=== PATIENT | male | born 1935 | race Caucasian/White ===

== ENCOUNTER 2017-03-11 19:22 | Emergency (ER) | payer OTHER ==
--- NOTE | 2017-03-11 22:18 | ED NURSING NOTES ---
Clinical Report - Nurses [facility] [address] [place] [address] 03/11/2017 19:30 Patient: FARIDA WREN TRIAGE Triage time 1920 PM. Acuity: LEVEL 3. Alert. No acute distress. SEPSIS SCREEN: Sepsis Screen. Negative (no infection suspected/documented). KEATON COMA SCORE: [place] Coma Scale: 15- eyes open spontaneously (4); best verbal response- oriented x 4 (5); best motor response- obeys commands (6). --19:46 Ilene Palma R.N. 19:31 03/11/17. BP: 215/90. HR: 66. RR: 15. O2 saturation: 96%. Temp: 98.1 F (oral). Pain level now: 5/10. --19:46 Ilene Palma R.N. Chief Complaint: (H/A and high BP). late entry - 19:39 PM. --22:38 Ilene Palma R.N. Weight: 112.2 kg stated. Height/Length: 69 inches Per Patient. BMI: 36.6. --19:41 Ilene Palma R.N. Medications Tylenol with Codeine #3 Oral, as needed. --19:33 Ilene Palma R.N. ASA Oral 81 mg. --19:33 Ilene Palma R.N. Simvastatin Oral. --19:33 Ilene Palma R.N. Furosemide Oral. --19:33 Ilene Palma R.N. Levothyroxine Sodium Oral. --19:33 Ilene Palma R.N. Medication/allergy information source: the patient. --19:46 Ilene Palma R.N. Allergies No Known Drug Allergy. --19:32 Ilene Palma R.N. History Arrived by private vehicle. Historian: patient. Accompanied by family. Primary physician (Dr. Apurva Whipple ()). ( Pt states that since Thursday night has been experiencing H/A which resolved in the morning but started up again on Thursday night, Thursday night and today has been going on for the whole day. Pt does state has been unable to sleep well, approximately 3 hrs a night since Thursday night. Pt states not feeling dizzy or SOB, or double vision, no trouble speaking or walking. Pt states never having H/A in the past, family was concerned due to high BP 209/118. FAST exam negative). This started yesterday. No fever, weakness, cough, difficulty breathing or skin rash. Denies muscle aches. Treatment BINDER SORTER: (tylenol # 3). PAST MEDICAL HX: Immunizations: up-to-date. SOCIAL HX: Former smoker, end date 1969. No alcohol use or drug use. No infectious disease exposure. ABUSE ASSESSMENT: No report of abuse. SELF HARM ASSESSMENT: A self harm assessment was performed. The patient answered "no" to the question "Do you have thoughts of harming or killing yourself?" and "Have you recently had thoughts about harming or killing others?". FALL RISK ASSESSMENT: Fall risk assessment completed. No fall risk identified. NUTRITIONAL RISK ASSESSMENT: The nutritional risk assessment revealed no deficiencies. FUNCTIONAL ASSESSMENT: Functional assessment: no impairments noted. LEARNING NEEDS ASSESSMENT: The learning needs assessment revealed no barriers. SKIN INTEGRITY ASSESSMENT: Skin integrity risk assessment completed. No skin integrity risk identified. --19:46 Ilene Palma R.N. PROBLEMS: Degenerative Joint Disease. Arthritis. Hypothyroidism. Back Pain. --19:37 Ilene Palma R.N. ADDITIONAL SURGERIES: Knee replacement. --19:37 Ilene Palma R.N. Cataract Surgery. --19:46 Ilene Palma R.N. Interventions ID band on patient. --19:46 Ilene Palma R.N. PHYSICAL ASSESSMENT To room via wheelchair. ( Pt states feeling "heaviness across his eye and also around his nose" does admit to having sinus infection, denies cough, fevers, chills). GENERAL / NEURO / PSYCH: Alert. Oriented X 4. Appears in no acute distress. HEENT: No facial asymmetry noted. Mucous membranes are pink. RESPIRATORY: Respirations not labored. Chest nontender. Breath sounds within normal limits. CVS: Capillary refill less than 2 seconds. Pulses within normal limits. GI / : Abdomen soft and nontender and normal bowel sounds. SKIN: Skin is warm and dry. Poor skin turgor. --19:49 Ilene Palma R.N. NURSING PROGRESS NOTES The initial plan of care for this patient has been created This plan of care was discussed with the patient. Pulse oximeter and NIBP monitor placed on patient. Patient gowned. Warming measures: blanket applied. Reassurance given. The patient is calm. ( Normal speech, no deficits noted). Two patient identifiers checked. Call light placed in reach. Side rails up x 1. Patient ready for evaluation. --19:51 Ilene Palma R.N. 19:34 03/11/17. BP: 170/92 (regular adult cuff) taken on the right arm, via an automated monitor, while lying. HR: 67. RR: 15. O2 saturation: 98%. Pain level now: 510. --19:51 Ilene Palma R.N. 20:03 03/11/17. BP: 169/80 (regular adult cuff) taken on the right arm, via an automated monitor, while lying. HR: 66. RR: 14. O2 saturation: 96%. Pain level now: 510. --20:03 Ilene Palma R.N. 19:50 03/11/2017 Site #1 started via IV in the left forearm with an 20g angiocath, with aseptic technique and good blood return; one attempt. Blood drawn: rainbow set and cultures. Labeled in the presence of the patient and sent to the lab. Saline lock flushed with 10 mL saline. --20:39 Trang Forman R.N. 21:13 03/11/2017 Dilaudid (HYDROmorphone HCl PF) IVP 1 mg given over 30 second(s) via site #1. Allergies verified, confirmed 5 rights and sedative warning given to the patient and patient's family. IV patency established. IV site checked: no pain, redness, or swelling. IV flushed thoroughly pre- and post-medication administration. IVP given by RN. --21:18 Ilene Palma R.N. 21:18 03/11/2017 Toradol IVP 30 mg given over 30 second(s) via site #1. Allergies verified and confirmed 5 rights. IV patency established. IV site checked: no pain, redness, or swelling. IV flushed thoroughly pre- and post-medication administration. IVP given by RN. --21:18 Ilene Palma R.N. 21:19 03/11/2017 Lopressor (Metoprolol Tartrate) IVP 5 mg given over 10 minute(s) via site #1. Allergies verified and confirmed 5 rights. IV patency established. IV site checked: no pain, redness, or swelling. IV flushed thoroughly pre- and post-medication administration. IVP given by RN. --21:19 Ilene Palma R.N. late entry - 20:00 PM. Pulse oximeter and NIBP monitor placed on patient. Reassurance given. Overall patient status is the same- he states feels the same. GENERAL / NEURO / PSYCH: The patient reports headache. Call light placed in reach. --21:20 Ilene Palma R.N. 20:00 03/11/17. BP: 173/82. HR: 64. RR: 15. O2 saturation: 98% on room air. Pain level now: 06/18. --21:20 Ilene Palma R.N. Pulse oximeter and NIBP monitor placed on patient. Reassurance given. Overall patient status is improved- he states feels better. ( Meds given with good response, will monitor). GENERAL / NEURO / PSYCH: The patient reports headache. --21:21 Ilene Palma R.N. 21:20 03/11/17. BP: 180/91. HR: 63. RR: 15. O2 saturation: 98%. Pain level now: 04/18. --21:21 Ilene Palma R.N. Pulse oximeter and NIBP monitor placed on patient. Reassurance given. --21:35 Ilene Palma R.N. 21:34 03/11/17. BP: 178/85. HR: 58. RR: 14. O2 saturation: 96% on room air. Pain level now: 04/18. --21:35 Ilene Palma R.N. 21:36 03/11/2017 Dilaudid IVP Response: no adverse reaction pain is improving. Symptoms have improved the patient feels the same. --22:36 Ilene Palma R.N. 22:03/11/2017 Dilaudid (HYDROmorphone HCl PF) IVP 1 mg given over 1 minute(s) via site #1. Allergies verified, confirmed 5 rights and sedative warning given to the patient and patient's family. IV patency established. IV site checked: no pain, redness, or swelling. IV flushed thoroughly pre- and post-medication administration. IVP given by RN. --22:02 Ilene Palma R.N. Reassurance given. --22:06 Ilene Palma R.N. 22:03/11/17. BP: 185/86. HR: 54. RR: 14. O2 saturation: 98%. Pain level now: 02/16. --22:06 Ilene Palma R.N. 22:03/11/17. BP: 179/92 (regular adult cuff) taken on the right arm, via an automated monitor, while sitting. HR: 54. RR: 12. O2 saturation: 95%. Pain level now: 02/16. --22:07 Ilene Palma R.N. 22:12 03/11/17. BP: 159/87 (regular adult cuff) taken on the left arm, via an automated monitor. HR: 54. RR: 14. O2 saturation: 96% on room air. Pain level now: 12/19. --22:12 Ilene Palma R.N. 22:03/11/2017 Lopressor (Metoprolol Tartrate) IVP 15 mg given over 15 minute(s) via site #1. Allergies verified and confirmed 5 rights. IV patency established. IV site checked: no pain, redness, or swelling. IV flushed thoroughly pre- and post-medication administration. IVP given by RN. --22:12 Ilene Palma R.N. 22:11 03/11/2017 Lopressor IVP Response: no adverse reaction. --22:36 Ilene Palma R.N. 22:26 03/11/2017 Dilaudid IVP Response: no adverse reaction pain is improving. Symptoms have improved the patient feels better. --22:36 Ilene Palma R.N. 22:32 03/11/2017 Site #1 removed upon discharge. Manual pressure, pressure dressing, bandaid and bandage applied. --22:37 Ilene Palma R.N. 22:32 03/11/2017 Lopressor IVP Response: no adverse reaction symptoms have improved the patient feels better. --22:37 Ilene Palma R.N. DISPOSITION / DISCHARGE Condition at departure: improved and stable. No learning barriers present. Discharge instructions provided and reviewed with the patient and family. Reviewed warnings. Reviewed medication(s) side effects, precautions, dosing and course information. Prescription(s) given to the patient. Activity restrictions (rest) reviewed. Patient and family verbalized understanding. Written instructions provided in Cypriot. ( pt verbalizes understanding of following up with MD in the morning for high BP, Lopressor given with good results. All instructions reviewed). The patient was discharged by the physician. He was discharged home and accompanied by spouse. He left the Emergency Department ambulatory and via private vehicle. Family member driving. --22:37 Ilene Palma R.N. Departure time: 2237 PM. --22:37 Ilene Palma R.N. 22:30 03/11/17. BP: 159/85. HR: 54. RR: 12. O2 saturation: 96% on room air. Temp: 98 F (oral). Pain level now: 12/19. --22:38 Ilene Palma R.N. Locked/Released at 03/11/2017 22:38 by Ilene Palma R.N.
--- NOTE | 2017-03-11 22:18 | ED ORDER SUMMARY ---
..... Patient: FARIDA WREN OrderSheet [facility] VisitID: [id number] [place] [address] 81y, M Registration Date/Time: 03/11/2017 ORDER SHEET Weight: 112.2 kg (stated) Allergies: No Known Drug Allergy GENERAL ORDERS: Cardroom Attendant (Continuous) (20:03/11/2017 Yola DELVALLE) (20:42 DDean R.N.) CBC w Diff Urgent (20:03/11/2017 Yola DELVALLE) (20:33 CHagceleste ER Trade Embalmer) CMP Urgent (20:03/11/2017 Yola DELVALLE) (20:33 Odalis ER Trade Embalmer) TSH Urgent (20:38 03/11/2017 Yola DELVALLE) (20:47 Odalis ER Trade Embalmer) MEDICATION ORDERS: IV FLUIDS: IV Saline Lock (20:03/11/2017 Yola DELVALLE) (20:43 DDean R.N.) Dilaudid IV 1 mg (may repeat in 15 min if inadequate pain relief) (21:03/11/2017 Yola DELVALLE) (21:18 EHassan R.N.) Toradol IV 30 mg (NOW) (21:03/11/2017 Yola DELVALLE) (21:18 EHassan R.N.) Lopressor IV 5 mg (HIGH ALERT MEDICATION, NOW) (21:02 03/11/2017 Yola DELVALLE) (21:19 EHassan R.N.) Labetalol IV 10 mg (HIGH ALERT MEDICATION, NOW) (21:41 03/11/2017 Yola DELVALLE) (Cancelled: med [id number]:00 Yola DELVALLE) Dilaudid IV 1 mg (HIGH ALERT MEDICATION, NOW) (21:41 03/11/2017 Yola DELVALLE) (22:02 EHassan R.N.) Lopressor IV 15 mg (HIGH ALERT MEDICATION, NOW) (22:00 03/11/2017 Yoal DELVALLE) (22:12 EHassan R.N.) ORDER SHEET NOTES: [Electronically signed by Sandie Beaver MD (22:35 03/11/2017)] [Electronically signed by Ilene Palma R.N. (22:38 03/11/2017)] [Electronically locked/signed by Ilene Palma R.N. (22:38 03/11/2017)]
--- NOTE | 2017-03-11 22:18 | ED CLINICAL REPORT ---
Clinical Report - Physicians/Mid Levels [facility] [address] [place] [address] 03/11/2017 19:30 Patient: FARIDA WREN Time Seen: 19:33. Arrived- By private vehicle. Historian- patient. HISTORY OF PRESENT ILLNESS Chief Complaint: HEADACHE. Is still present. This started about 3 days ago. Onset during light activity. It is described as "pain". Located in the frontal region. No neck pain. At its maximum, severity described as moderate. When seen in the E.D., severity described as moderate. Modifying factors: relieved by nothing. Not worsened by anything. No preceding symptoms, blurred vision, photophobia, associated nausea or numbness. No weakness or vomiting. (The patient's daughter states that she took the patient's blood pressure today and found that it was 209/118. Patient states that his systolic blood pressure is usually in the 120s over the highest he is ever found to be within the 140s. Patient states that his chronic back pain and carpal tunnel pain have been flaring up on him recently and that his meloxicam and Tylenol 3 are not adequately controlling the pain. Patient states that he also has been unable to sleep due to the pain and has been getting about 3 hours of sleep per night. Patient's daughter does feel that the patient does not drink enough fluid Patient has been on antihypertensives previously but daughter states was very low dose. He was taken off the medication because it was determined that he no longer had hypertension.). Similar symptoms previously: Recent medical care: The patient was seen recently by a health care provider. REVIEW OF SYSTEMS No fever, muscle aches, sinus pressure, ear pain or sore throat. No head injury, chest pain, difficulty breathing, cough or abdominal pain. No diarrhea, pain with urination, skin rash, enlarged lymph nodes or back pain. All systems otherwise negative, except as recorded above. PAST HISTORY Problems: Degenerative Joint Disease. Arthritis. Hypothyroidism. Back Pain. Additional Surgeries: Cataract Surgery. Knee replacement. Medications: Levothyroxine Sodium Oral. Furosemide Oral. Simvastatin Oral. ASA Oral 81 mg. Tylenol with Codeine #3 Oral, as needed. Allergies: No Known Drug Allergy. SOCIAL HISTORY Former smoker. No alcohol use or drug use. ADDITIONAL NOTES The nursing notes have been reviewed. PHYSICAL EXAM Vital Signs: 03/11/2017 19:31 BP: 215/90. HR: 66. RR: 15. O2 saturation: 96%. Temp: 98.1 F. Pain level now: 5/10. Have been reviewed. Appearance: Alert. No acute distress. Eyes: Pupils equal, round and reactive to light. Eyes normal inspection. ENT: Nose normal. Neck: Normal inspection. CVS: Normal heart rate and rhythm. Heart sounds normal. Pulses normal. Respiratory: No respiratory distress. Breath sounds normal. Abdomen: Soft and nontender. Back: Moderately limited ROM in the back- in the lumbar spine. Skin: Skin warm and dry. Normal skin color. No rash. Normal skin turgor. Extremities: Extremities exhibit normal ROM. No lower extremity edema. Neuro: Alert. Mood/affect normal. Speech normal. Cranial nerves normal (as tested). No cerebellar findings. No motor deficit. No sensory deficit. LABS, X-RAYS, AND EKG Laboratory Tests: CBC w Diff: (FARSHAD: 03/11/2017 19:30) ( MsgRcvd 03/11/2017 20:39) Final results Test Result Flag Units (Reference) WHITE BLOOD COUNT 9.2 K/uL (4.5-11.5) RED BLOOD COUNT 5.10 M/uL (4.50-5.90) HEMOGLOBIN 14.6 gm/dL (13.5-17.5) HEMATOCRIT 44.5 % (41.0-53.0) MEAN CELL VOLUME 87 fL (80-100) MEAN CORPUSCULAR HGB 29 pg (26-34) MEAN CORPUSCULAR HGB CONC 33 g/dL (31-37) RED CELL DISTRIBUTION WIDTH 14.1 % (11.6-14.8) PLATELET COUNT 310 K/uL (150-400) NEUTROPHIL % 62.6 % (50-75) LYMPH % 18.5 L % (25-40) MONO % 10.6 % (3-14) EOSINOPHIL % 7.8 H % (0-4) BASOPHIL % 0.5 % (0-2) CMP: (FARSHAD: 03/11/2017 19:30) ( MsgRcvd 03/11/2017 20:51) Final results Test Result Flag Units (Reference) GLUCOSE 138 H mg/dL (70-110) BUN 21 H mg/dL (7-18) CREATININE 0.8 mg/dL (0.6-1.3) Estimated GFR >60 mL/min Estimated GFR- >60 mL/min Note: Persistent reduction over 3 months in eGFR<60 mL/min/1.73 m2 defines CKD. Patients with eGFR values>=60 mL/min/1.73 m2 may also have CKD if evidence ofpersistent proteinuria. Additional information may be foundat www.kidney.org. SODIUM 140 mmol/L (136-145) POTASSIUM 4.2 mmol/L (3.5-5.1) CHLORIDE 103 mmol/L (98-107) CARBON DIOXIDE 30 mmol/L (21-32) CALCIUM 9.2 mg/dL (8.5-10.1) TOTAL PROTEIN 8.1 g/dL (6.4-8.2) ALBUMIN 3.9 g/dL (3.3-5.0) BILIRUBIN, TOTAL 0.4 mg/dL (0.0-1.0) ALKALINE PHOSPHATASE 49 U/L (46-116) AST (SGOT) 23 U/L (15-37) ALT (SGPT) 26 U/L (12-78) . Pulse Oximetry: 03/11/2017 19:31 O2 saturation: 96%. (FIO2 - room air). Interpretation: normal. PROGRESS AND PROCEDURES Course of Care: The patient did not have any focal neurologic deficits. I did not feel he has had a CVA; however his blood pressure was very high and he was having headaches and I didn't feel that his blood pressure should be brought down. I did discuss with the patient and his family that some of the hypertension may be secondary to the patient's level of pain, as well as the fact that he has not been sleeping well. Laboratory studies were unremarkable. I did not feel a CT of the head was indicated, given the patient's lack of neurologic deficits. Patient was given IV Dilaudid and Toradol as well as a small dose of Lopressor. He was given oral fluids to drink. Patient was found to be feeling much better after these interventions; however, his blood pressure was still high. Therefore, he was given an IV dose of Lopressor 15 mg. His blood pressure did improve after this, and I felt he was stable for discharge home. I have given the patient a prescription for metoprolol for his blood pressure and for Vicodin for his pain. He is encouraged to follow up with his primary care physician for both of these issues as soon as possible. His family is present and also understands these instructions. Patient and family counseled in person regarding the patient's stable condition, test results, diagnosis and need for follow-up. Old medical records reviewed. Disposition: Discharged. Condition: stable and improved. CLINICAL IMPRESSION Acute tension headache (hypertensive). Uncontrolled essential hypertension. INSTRUCTIONS Warnings: SEDATIVE MEDICATION: You were given sedative medication during your visit. Do not drive or operate dangerous machinery for 8 hours. GENERAL WARNINGS: Return or contact your physician immediately if your condition worsens or changes unexpectedly, if not improving as expected, or if other problems arise. Your Current Medications: CONTINUE TAKING THE FOLLOWING MEDICATIONS: ASA Oral : 81 mg. Furosemide Oral. Levothyroxine Sodium Oral. Simvastatin Oral. Tylenol with Codeine #3 Oral : prn. Prescription Medications: Hydrocodone/APAP 5mg / 325mg: take 1-2 orally every 4 hours as needed for pain. Dispense thirty (30). No refill. Metoprolol 25 mg: take 1 orally every 12 hours. Dispense twenty (20). No refills. Follow-up: Follow up with your doctor. Call for the next available appointment. Reason for referral: Follow up high blood pressure and chronic pain escalation. Understanding of the discharge instructions verbalized by patient and family. (Electronically signed by Sandie Beaver MD 03/11/2017 22:35)
--- NOTE | 2017-03-11 22:18 | ED ORDER SUMMARY ---
..... Patient: FARIDA WREN OrderSheet [facility] VisitID: [id number] [place] [address] 81y, M Registration Date/Time: 03/11/2017 ORDER SHEET Weight: 112.2 kg (stated) Allergies: No Known Drug Allergy GENERAL ORDERS: Body Technician/Painter (Continuous) (20:03/11/2017 Yola DELVALLE) (20:42 DDean R.N.) CBC w Diff Urgent (20:03/11/2017 Yola DELVALLE) (20:33 CHagceleste ER Mud Mixer Helper) CMP Urgent (20:03/11/2017 Yola DELVALLE) (20:33 Odalis ER Mud Mixer Helper) TSH Urgent (20:38 03/11/2017 Yola DELVALLE) (20:47 Odalis ER Mud Mixer Helper) MEDICATION ORDERS: IV FLUIDS: IV Saline Lock (20:03/11/2017 Yola DELVALLE) (20:43 DDean R.N.) Dilaudid IV 1 mg (may repeat in 15 min if inadequate pain relief) (21:03/11/2017 Yola DELVALLE) (21:18 EHassan R.N.) Toradol IV 30 mg (NOW) (21:03/11/2017 Yola DELVALLE) (21:18 EHassan R.N.) Lopressor IV 5 mg (HIGH ALERT MEDICATION, NOW) (21:02 03/11/2017 Yola DELVALLE) (21:19 EHassan R.N.) Labetalol IV 10 mg (HIGH ALERT MEDICATION, NOW) (21:41 03/11/2017 Yola DELVALLE) (Cancelled: med [id number]:00 Yola DELVALLE) Dilaudid IV 1 mg (HIGH ALERT MEDICATION, NOW) (21:41 03/11/2017 Yola DELVALLE) (22:02 EHassan R.N.) Lopressor IV 15 mg (HIGH ALERT MEDICATION, NOW) (22:00 03/11/2017 Yola DELVALLE) (22:12 EHassan R.N.) ORDER SHEET NOTES: [Electronically signed by Sandie Beaver MD (22:35 03/11/2017)] [Electronically signed by Ilene Palma R.N. (22:38 03/11/2017)] [Electronically locked/signed by Ilene Palma R.N. (22:38 03/11/2017)]
--- NOTE | 2017-03-11 22:39 | ED MED RECONCILIATION SUMMARY ---
Patient: FARIDA WREN Medication Reconciliation Report Merged With [facility] VisitID: [id number] [address] [place] [address] 81y, M Registration Date/Time: 03/11/2017 Weight: 112.2 kg Height/Length: 69 in. BMI: 36.6 ALLERGIES: No Known Drug Allergy The patient's Home Medications are listed below: CONTINUE TAKING THE FOLLOWING MEDICATIONS: ASA Oral 81 mg Furosemide Oral Levothyroxine Sodium Oral Simvastatin Oral Tylenol with Codeine #3 Oral The source(s) of the original Home Medication information: patient The following Medications were given to the patient in the Emergency Department: Dilaudid [IVP] IVP 1 mg, administered: 03/11/2017 9:13:00 PM Toradol [IVP] IVP 30 mg, administered: 03/11/2017 9:18:00 PM Lopressor [IVP] IVP 5 mg, administered: 03/11/2017 9:19:00 PM Dilaudid [IVP] IVP 1 mg, administered: 03/11/2017 10:02:00 PM Lopressor [IVP] IVP 15 mg, administered: 03/11/2017 10:07:00 PM The following Medications were prescribed to the patient: Hydrocodone/APAP 5mg / 325mg: take 1-2 orally every 4 hours as needed for pain. Dispense thirty (30). No refill. -- Sandie Beaver MD Metoprolol 25 mg: take 1 orally every 12 hours. Dispense twenty (20). No refills. -- Sandie Beaver MD
--- NOTE | 2017-03-11 22:39 | ED MED RECONCILIATION SUMMARY ---
Patient: FARIDA WREN Medication Reconciliation Report [facility] VisitID: [id number] [address] [place] [address] 81y, M Registration Date/Time: 03/11/2017 Weight: 112.2 kg Height/Length: 69 in. BMI: 36.6 ALLERGIES: No Known Drug Allergy The patient's Home Medications are listed below: CONTINUE TAKING THE FOLLOWING MEDICATIONS: ASA Oral 81 mg Furosemide Oral Levothyroxine Sodium Oral Simvastatin Oral Tylenol with Codeine #3 Oral The source(s) of the original Home Medication information: patient The following Medications were given to the patient in the Emergency Department: Dilaudid [IVP] IVP 1 mg, administered: 03/11/2017 9:13:00 PM Toradol [IVP] IVP 30 mg, administered: 03/11/2017 9:18:00 PM Lopressor [IVP] IVP 5 mg, administered: 03/11/2017 9:19:00 PM Dilaudid [IVP] IVP 1 mg, administered: 03/11/2017 10:02:00 PM Lopressor [IVP] IVP 15 mg, administered: 03/11/2017 10:07:00 PM The following Medications were prescribed to the patient: Hydrocodone/APAP 5mg / 325mg: take 1-2 orally every 4 hours as needed for pain. Dispense thirty (30). No refill. -- Sandie Beaver MD Metoprolol 25 mg: take 1 orally every 12 hours. Dispense twenty (20). No refills. -- Sandie Beaver MD
--- NOTE | 2017-03-11 22:39 | ED MAR SUMMARY ---
..... Medication Administration Record [facility] [address] [place] [address] Patient: FARIDA WREN Visit ID: [id number] 81y, M Weight: 112.2 kg Height/Length: 69 in BMI: 36.6 ALLERGIES: No Known Drug Allergy Given 21:13 03/11/2017 Ilene Palma R.N. Medication Administered: DILAUDID [IVP] (HYDROMORPHONE HCL PF), Dose: 1 mg IVP over 30 second(s), Site: #1 left forearm. Medication Ordered: Dilaudid IV 1 mg (may repeat in 15 min if inadequate pain relief). Given 21:18 03/11/2017 Ilene Palma R.N. Medication Administered: TORADOL [IVP], Dose: 30 mg IVP over 30 second(s), Site: #1 left forearm. Medication Ordered: Toradol IV 30 mg (NOW). Given :19 03/11/2017 Ilene Palma R.N. Medication Administered: LOPRESSOR [IVP] (METOPROLOL TARTRATE), Dose: 5 mg IVP over 10 minute(s), Site: #1 left forearm. Medication Ordered: Lopressor IV 5 mg (HIGH ALERT MEDICATION, NOW). Given :03/11/2017 Ilene Palma R.N. Medication Administered: DILAUDID [IVP] (HYDROMORPHONE HCL PF), Dose: 1 mg IVP over 1 minute(s), Site: #1 left forearm. Medication Ordered: Dilaudid IV 1 mg (HIGH ALERT MEDICATION, NOW). Given :03/11/2017 Ilene Palma R.N. Medication Administered: LOPRESSOR [IVP] (METOPROLOL TARTRATE), Dose: 15 mg IVP over 15 minute(s), Site: #1 left forearm. Medication Ordered: Lopressor IV 15 mg (HIGH ALERT MEDICATION, NOW).
--- NOTE | 2017-03-11 22:39 | ED MAR SUMMARY ---
..... Medication Administration Record [facility] [address] [place] [address] Patient: FARIDA WREN Visit ID: [id number] 81y, M Weight: 112.2 kg Height/Length: 69 in BMI: 36.6 ALLERGIES: No Known Drug Allergy Given 21:13 03/11/2017 Ilene Palma R.N. Medication Administered: DILAUDID [IVP] (HYDROMORPHONE HCL PF), Dose: 1 mg IVP over 30 second(s), Site: #1 left forearm. Medication Ordered: Dilaudid IV 1 mg (may repeat in 15 min if inadequate pain relief). Given 21:18 03/11/2017 Ilene Palma R.N. Medication Administered: TORADOL [IVP], Dose: 30 mg IVP over 30 second(s), Site: #1 left forearm. Medication Ordered: Toradol IV 30 mg (NOW). Given :19 03/11/2017 Ilene Palma R.N. Medication Administered: LOPRESSOR [IVP] (METOPROLOL TARTRATE), Dose: 5 mg IVP over 10 minute(s), Site: #1 left forearm. Medication Ordered: Lopressor IV 5 mg (HIGH ALERT MEDICATION, NOW). Given :03/11/2017 Ilene Palma R.N. Medication Administered: DILAUDID [IVP] (HYDROMORPHONE HCL PF), Dose: 1 mg IVP over 1 minute(s), Site: #1 left forearm. Medication Ordered: Dilaudid IV 1 mg (HIGH ALERT MEDICATION, NOW). Given :03/11/2017 Ilene Pamla R.N. Medication Administered: LOPRESSOR [IVP] (METOPROLOL TARTRATE), Dose: 15 mg IVP over 15 minute(s), Site: #1 left forearm. Medication Ordered: Lopressor IV 15 mg (HIGH ALERT MEDICATION, NOW).
--- NOTE | 2017-03-11 22:39 | ED DISCHARGE INSTRUCTIONS ---
Patient: FARIDA WREN General Instructions [facility] VisitID: [id number] [place] [address] 81y, M Registration Date/Time: 03/11/2017 Acute tension headache (hypertensive). Uncontrolled essential hypertension. INSTRUCTIONS Warnings: SEDATIVE MEDICATION: You were given sedative medication during your visit. Do not drive or operate dangerous machinery for 8 hours. GENERAL WARNINGS: Return or contact your physician immediately if your condition worsens or changes unexpectedly, if not improving as expected, or if other problems arise. Your Current Medications: CONTINUE TAKING THE FOLLOWING MEDICATIONS: ASA Oral : 81 mg. Furosemide Oral. Levothyroxine Sodium Oral. Simvastatin Oral. Tylenol with Codeine #3 Oral : prn. Prescription Medications: Hydrocodone/APAP 5mg / 325mg: take 1-2 orally every 4 hours as needed for pain. Dispense thirty (30). No refill. Metoprolol 25 mg: take 1 orally every 12 hours. Dispense twenty (20). No refills. Follow-up: Follow up with your doctor. Call for the next available appointment. Reason for referral: Follow up high blood pressure and chronic pain escalation. Understanding of the discharge instructions verbalized by patient and family. ADDITIONAL INFORMATION Headache [Unspecified] The cause of your headache today is not clear, but it does not appear to be the sign of any serious illness. Under stress, some people tense the muscles of their shoulder, neck and scalp without knowing it. If this condition lasts long enough, a TENSION HEADACHE can occur. A MIGRAINE HEADACHE is caused by changes in blood flow to the brain. A migraine attack may be triggered by emotional stress, hormone changes during the menstrual cycle, oral contraceptives, alcohol use, certain foods containing tyramine, eye strain, weather changes, missing meals, lack of sleep or oversleeping. Other causes of headache include a viral illness with high fever, head injury with concussion, sinus, ear or throat infection, dental pain and TMJ (jaw joint) pain. More serious but less common causes of headache include stroke, brain hemorrhage, brain tumor, meningitis and encephalitis. Home Care: If you were given pain medicine for this headache, do not drive yourself home. Arrange for a ride, instead. When you get home, try to sleep. You should feel much better when you wake up. Apply heat to the back of your neck to relieve neck muscle spasm. Migraine headaches may respond best to an ice pack on the forehead or at the base of the skull. If you are having nausea or vomiting, follow a light diet until your headache is relieved. If you have a migraine type headache, use sunglasses when in the daylight or around bright indoor lighting until symptoms improve. Bright glaring light can worsen this kind of headache. Follow Up with your doctor if the headache is not better within the next 24 hours. If you have frequent headaches you should discuss a treatment plan with your primary care doctor. By being aware of the earliest signs of headache, and starting treatment right away, you may be able to stop the pain yourself. Get Prompt Medical Attention if any of the following occur: Worsening of your head pain or no improvement within 24 hours Repeated vomiting (unable to keep liquids down) Fever of 100.4F (38C) or higher, or as directed by your healthcare provider Stiff neck Extreme drowsiness, confusion or fainting Dizziness, vertigo (dizziness with spinning sensation) Weakness of an arm or leg or one side of the face Difficulty with speech or vision Hypertension, Out Of Control (Established) Your blood pressure was unusually high today. This can occur as a result of missing doses of your blood pressure medicine. Some asthma inhalers, decongestants, diet pills, and street drugs such as cocaine and amphetamine can worsen hypertension. An increase in body weight, increase in salt intake, smoking, and caffeine are other causes. Emotional upset or acute pain can cause a sudden rapid rise in blood pressure which may return to normal after a period of rest. A normal blood pressure is less than 140/90. The first (top) number is the systolic pressure. The second (bottom) number is the diastolic pressure. Hypertension exists when either the top number is 140 or higher, OR the bottom number is 90 or higher on repeated measurements. Home Care: All patients with high blood pressure should do the following to lower their pressure. If you are on blood pressure medicines, then these methods may reduce or eliminate your need for medicines in the future. Begin a weight-loss program if you are overweight. Reduce your salt intake. Avoid high-salt foods (olives, pickles, smoked meats, salted potato chips, etc.). Do not add salt to your food at the table. Use only small amounts of salt when cooking. Begin an exercise program. Discuss with your doctor what type of exercise program would be best for you. It doesnt have to be difficult. Even brisk walking for 20 minutes3 times a week is a good form of exercise. Avoid medicines which contain heart stimulants. This includes many cold and sinus decongestant pills and sprays as well as diet pills. Check the warnings about hypertension on the label. Stimulants such as amphetamine or cocaine could be lethal for someone with hypertension. Never take these. Limit your caffeine intake or switch to decaf. Stop smoking. If you are a long-time smoker, this can be hard. Enroll in a stop-smoking program to improve your chance of success. Talk to your physician about ways to improve your chance of success. Learning how to handle stress better is an important part of any program to lower blood pressure. Learn about relaxation methods such as meditation, yoga, or biofeedback. If medicines were prescribed, take them exactly as directed. Missing doses may cause your blood pressure to get out of control. Consider buying an automatic blood pressure machine (available at many pharmacies). Use this to monitor your blood pressure and report to your doctor. Follow Up: Regular visits to your own doctor for blood pressure checks and medicine adjustment is an important part of your care. Make a follow-up appointment as directed by our staff. Get Prompt Medical Attention if any of the following occur: Chest, arm, shoulder, neck, or upper back pain Shortness of breath Severe headache Throbbing or rushing sound in the ears Nosebleed Extreme drowsiness, confusion, or fainting Dizziness or vertigo (dizziness with spinning sensation) Weakness of an arm or leg or one side of the face Difficulty with speech or vision You have been given the following additional information: Headache, Unspecified Hypertension, Established, Out Of Control (Electronically signed by Sandie Beaver MD 03/11/2017 22:35)
== END 2017-03-11 22:35 | disposition home or self-care (01) ==
LOC: ED SRH 19:22
DX: G44.209 Tension-type headache, unspecified, not intractable (principal); I10 Essential (primary) hypertension; E03.9 Hypothyroidism, unspecified; Z79.891 Long term (current) use of opiate analgesic; Z87.891 Personal history of nicotine dependence
CPT/HCPCS: 90100; 93140; 95059

== ENCOUNTER 2017-03-13 12:05 | Observation (INO) | payer OTHER ==
[~2017-03-13] VITALS: Ht 180.3 cm; Wt 111.6 kg
--- NOTE | 2017-03-13 14:22 | DIAGNOSTIC IMAGING REPORT ---
PROCEDURE: XR CHEST 1 VIEW INDICATION: HEADACHE/BACK PAIN TECHNIQUE: Portable AP view 01:40 p.m. COMPARISON: Chest x-ray 10/28/2011. FINDINGS: Poor inspiration with mild elevation of the right hemidiaphragm and mild right basilar scarring. Left lung is clear. Heart and mediastinum are normal. Thorax is normal. IMPRESSION: 1. No acute changes 2. Poor inspiration with elevation of the right hemidiaphragm and mild right basilar scarring
--- NOTE | 2017-03-13 15:14 | DIAGNOSTIC IMAGING REPORT ---
PROCEDURE: CT HEAD WITHOUT CONTRAST INDICATION: It extends 6 days. Initial encounter. TECHNIQUE: Noncontrast axial images with sagittal and coronal reformations. COMPARISON: Head CTA 04/10/2011. FINDINGS: Mild cortical atrophy. Normal ventricular system and brain parenchyma. No evidence of acute intracranial process. Calcific atherosclerosis of the vertebral and the carotid arteries. Moderate ethmoid and mild right maxillary sinus disease. Mastoids are clear. IMPRESSION: 1. No acute intracranial abnormality 2. Mild cortical atrophy 3. Sinus disease 4. Findings discussed with Cynthia Rodriguez at 03:10 p.m.[facility] Standard Time
--- NOTE | 2017-03-13 15:14 | DIAGNOSTIC IMAGING REPORT ---
PROCEDURE: CT HEAD WITHOUT CONTRAST INDICATION: It extends 6 days. Initial encounter. TECHNIQUE: Noncontrast axial images with sagittal and coronal reformations. COMPARISON: Head CTA 04/10/2011. FINDINGS: Mild cortical atrophy. Normal ventricular system and brain parenchyma. No evidence of acute intracranial process. Calcific atherosclerosis of the vertebral and the carotid arteries. Moderate ethmoid and mild right maxillary sinus disease. Mastoids are clear. IMPRESSION: 1. No acute intracranial abnormality 2. Mild cortical atrophy 3. Sinus disease 4. Findings discussed with Cynthia Rodriguez at 03:10 p.m.[facility] Standard Time
--- NOTE | 2017-03-13 16:33 | DIAGNOSTIC IMAGING REPORT ---
PROCEDURE: US VENOUS - BILATERAL EXT INDICATION: ELEVATED D DIMER TECHNIQUE: Duplex sonography of the deep venous system in both lower extremities was performed. Compression and augmentation techniques were used. COMPARISON: None. FINDINGS: Each interrogated segment of deep vein from the common femoral vein into the calf veins demonstrates normal compressibility, augmentation and/or color Doppler flow without filling defect. No evidence of significant soft-tissue edema, soft-tissue mass or cyst. IMPRESSION: 1. No deep venous thrombosis in either lower extremity.
--- NOTE | 2017-03-13 17:55 | ED CLINICAL REPORT ---
Clinical Report - Physicians/Mid Levels [facility] [address] [place] [address] 03/13/2017 12:06 Patient: CHRIS WREN Time Seen: 12:29. Arrived- By private vehicle. Historian- patient. HISTORY OF PRESENT ILLNESS Chief Complaint: HEADACHE. Is still present. This started about 5 days ago. It was abrupt in onset and has been constant and waxing/waning. It is described as pressure and "like a steel band across there". Located in the frontal region. No neck pain. At its maximum, severity described as 9 / 10. When seen in the E.D., severity described as 5 / 10. The patient has had nausea and vomiting. No blood-tinged emesis or coffee-grounds emesis. He has had numbness of the right foot (mild) and left foot (mild). No blurred vision or photophobia. Recent medical care: The patient was seen recently at this facility. Seen for similar symptoms. REVIEW OF SYSTEMS No chills, fever, sweats, nasal congestion or runny nose. No sinus pain, chest pain, cough, difficulty breathing or pedal edema. No palpitations, abdominal pain, constipation, diarrhea or urinary problems. The patient has had mild calf pain involving the right leg and left leg. All systems otherwise negative, except as recorded above. PAST HISTORY PCP - Deniz. Problems: Hypertension. Headache. Degenerative Joint Disease. Arthritis. Hypothyroidism. Back Pain. Additional Surgeries: Cataract Surgery. Knee replacement. Medications: Aspir-81 Oral. Meloxicam Oral. Simvastatin Oral. Hydrocodone-Acetaminophen Oral. TraZODone HCl Oral. Levothyroxine Sodium Oral. Metoprolol Tartrate Oral. Hydrochlorothiazide Oral. Allergies: No Known Drug Allergy. SOCIAL HISTORY Smoker- current status unknown. FAMILY HISTORY Stroke in first-degree relative (mother and father). ADDITIONAL NOTES The nursing notes have been reviewed. PHYSICAL EXAM Vital Signs: 03/13/2017 12:15 BP: 200/98. HR: 60. RR: 18. O2 saturation: 97%. Temp: 98.4 F. Have been reviewed. Appearance: Alert. Eyes: Pupils equal, round and reactive to light. Funduscopic exam normal. Eyes normal inspection. No photophobia. ENT: Ears normal. Nose normal. Pharynx normal. Neck: Mild meningeal signs present. There is a positive Kernig's sign. No carotid bruit. CVS: Normal heart rate and rhythm. Heart sounds normal. Respiratory: No respiratory distress. Breath sounds normal. Abdomen: Soft and nontender. No organomegaly. Back: Normal inspection. Mildly limited ROM in the back- in the lumbar spine. No CVA tenderness. Skin: Skin warm and dry. Normal skin color. Normal skin turgor. Extremities: Extremities exhibit normal ROM. No calf tenderness. No lower extremity edema. Neuro: Alert. Mood/affect normal. Speech normal. Cranial nerves normal (as tested). No cerebellar findings. No motor deficit. No sensory deficit. LABS, X-RAYS, AND EKG EKG: No acute process. Rate: 60. LVH. EKG unchanged when compared with prior EKG. (28 Oct 2011). The study has been independently viewed by me. Chest X-ray: (PROCEDURE: XR CHEST 1 VIEW INDICATION: HEADACHE/BACK PAIN TECHNIQUE: Portable AP view 01:40 p.m. COMPARISON: Chest x-ray 10/28/2011. FINDINGS: Poor inspiration with mild elevation of the right hemidiaphragm and mild right basilar scarring. Left lung is clear. Heart and mediastinum are normal. Thorax is normal. IMPRESSION: 1. No acute changes 2. Poor inspiration with elevation of the right hemidiaphragm and mild right basilar scarring). The X-rays were interpreted by the radiologist and contemporaneously by me. CT Head: No acute changes. The study was interpreted by the radiologist and contemporaneously by me. Lower Extremity Sonography: Negative exam. bilateral lower extremities discussed with the telecasting technician. The study was independently viewed by me. Note - Special Studies: Name: Chris Wren : 1935 MR#: [id number] Ordering Provider: YAN FLORES Exam(s): CTA HEAD AND NECK Date of Exam: 03/13/2017 __ PROCEDURE: CTA HEAD AND NECK INDICATION: HEADACHE TECHNIQUE: Axial thin-slice CTA images through the neck and head were acquired following uncomplicated administration of 120 ml Isovue 370 IV contrast. Coronal and sagittal MIP reformations were created. COMPARISON: Head CT 03/13/2017 FINDINGS: Head: Anterior circulation: Moderate amount of atherosclerotic calcification involving the intracranial internal carotid arteries bilaterally. The anterior communicating artery is not visible. A wispy posterior communicating arteries present on the right. Non-visualized left-sided posterior communicating artery. Anterior and middle cerebral arteries are patent without stenosis or aneurysm. Posterior circulation: Posterior cerebral arteries are patent. No basilar terminus aneurysm. Non-visualized right anterior inferior cerebellar artery, however there appear to be collaterals from the left perfusing the right cerebellar hemisphere. Other findings: No abnormal parenchymal enhancement or vascular malformation. Neck: Carotid system: Mildly tortuous course of the right proximal common carotid. Common carotid arteries are normal in caliber. Mild calcification of the left carotid bulb without causing significant luminal stenosis. Normal-caliber internal carotid arteries bilaterally. External carotids are patent. No dissection. Vertebral system: Normal vertebral artery origins. The left slightly larger than the right. No evidence of dissection. Other findings: Severe degeneration at the atlantodental interval and at the C6-7 and C7-T1 disc levels. Severe facet degeneration throughout the cervical spine. IMPRESSION: 1. No evidence of stenosis, or dissection in the carotid or vertebral system. 2. No evidence of intracranial aneurysm or acute arterial stenosis. 3. Severe degenerative change in the cervical spine. Laboratory Tests: UA-Culture if indicated: (FARSHAD: 03/13/2017 14:24) ( MsgRcvd 03/13/2017 14:44) Final results Test Result Flag Units (Reference) URINE COLOR YELLOW URINE APPEARANCE CLEAR URINE GLUCOSE NEGATIVE (NEGATIVE) URINE BILIRUBIN NEGATIVE (NEGATIVE) URINE KETONE NEGATIVE (NEGATIVE) URINE SPECIFIC GRAVITY <= 1.005 L (1.010-1.030) URINE PH 7.0 (5.0-8.0) URINE PROTEIN NEGATIVE (NEGATIVE) URINE UROBILINOGEN 0.2 EU/dL (0.2-1.0) URINE NITRITE NEGATIVE (NEGATIVE) URINE BLOOD NEGATIVE (NEGATIVE) URINE LEUK ESTERASE NEGATIVE (NEGATIVE) URINE RBC NONE SEEN rbc/hpf (0-1) URINE WBC RARE wbc/hpf (0-1) URINE EPITHELIAL CELLS NONE SEEN EPI/hpf (0-5) URINE BACTERIA NONE SEEN (NONE SEEN) URINE COMMENT CULT NOT INDICATED URINE CULTURES ARE SET-UP BASED ON THE FOLLOWING CRITERIA:POSITIVE NITRITEPOSITIVE LEUKOCYTE ESTERASEGREATER THAN 10 WHITE BLOOD CELLSMODERATE (2+) OR GREATER BACTERIA ESR: (FARSHAD: 03/13/2017 14:21) ( [facility] 03/13/2017 17:48) Final results Test Result Flag Units (Reference) SED RATE WESTERGREN 8 mm/hr (0-20) CBC w Diff: (FARSHAD: 03/13/2017 14:21) ( [facility] 03/13/2017 14:32) Final results Test Result Flag Units (Reference) WHITE BLOOD COUNT 13.1 H K/uL (4.5-11.5) RED BLOOD COUNT 5.20 M/uL (4.50-5.90) HEMOGLOBIN 15.2 gm/dL (13.5-17.5) HEMATOCRIT 45.3 % (41.0-53.0) MEAN CELL VOLUME 87 fL (80-100) MEAN CORPUSCULAR HGB 29 pg (26-34) MEAN CORPUSCULAR HGB CONC 34 g/dL (31-37) RED CELL DISTRIBUTION WIDTH 13.6 % (11.6-14.8) PLATELET COUNT 334 K/uL (150-400) NEUTROPHIL % 75.5 H % (50-75) LYMPH % 13.3 L % (25-40) MONO % 9.1 % (3-14) EOSINOPHIL % 1.8 % (0-4) BASOPHIL % 0.3 % (0-2) [id number]: (FARSHAD: 03/13/2017 14:21) ( [facility] 03/13/2017 14:45) Final results Test Result Flag Units (Reference) D-DIMER QUANTITATIVE 0.55 H ug/mLFEU (0.27-0.52) The primary value of this quantitative assay relates toits negative predictive value (i.e. exclusion) of pulmonaryembolism/deep vein thrombosis/DIC.Elevated levels of d-dimer may also occur with:, age, cancer, inflammation, liver disease,post-op, infection, hematoma, coronary disease, peripheralarteriopathy, bleeding disorders and thrombolytic treatment.Results should be correlated with other clinical andradiological data.Testing Methodology: Latex Immunoassay [id number]: (FARSHAD: 03/13/2017 14:21) ( [facility] 03/13/2017 17:57) Final results Test Result Flag Units (Reference) C-REACTIVE PROTEIN < 0.2 mg/dL (0.0-0.9) CMP: (FARSHAD: 03/13/2017 14:21) ( [facility] 03/13/2017 15:01) Final results Test Result Flag Units (Reference) GLUCOSE 131 H mg/dL (70-110) BUN 20 H mg/dL (7-18) CREATININE 0.9 mg/dL (0.6-1.3) Estimated GFR >60 mL/min Estimated GFR- >60 mL/min Note: Persistent reduction over 3 months in eGFR<60 mL/min/1.73 m2 defines CKD. Patients with eGFR values>=60 mL/min/1.73 m2 may also have CKD if evidence ofpersistent proteinuria. Additional information may be foundat www.kidney.org. SODIUM 135 L mmol/L (136-145) POTASSIUM 4.5 mmol/L (3.5-5.1) CHLORIDE 97 L mmol/L (98-107) CARBON DIOXIDE 29 mmol/L (21-32) CALCIUM 9.1 mg/dL (8.5-10.1) TOTAL PROTEIN 8.5 H g/dL (6.4-8.2) ALBUMIN 4.2 g/dL (3.3-5.0) BILIRUBIN, TOTAL 0.7 mg/dL (0.0-1.0) ALKALINE PHOSPHATASE 50 U/L (46-116) AST (SGOT) 21 U/L (15-37) ALT (SGPT) 30 U/L (12-78) LIPASE 93 U/L (73-393) AMYLASE 52 U/L (25-115) CPK 68 U/L (24-260) TROPONIN I <0.05 ng/mL (0.00-1.5) TROPONIN REFERENCE RANGE:<0.1 NEGATIVE0.1-1.5 INDETERMINANT>1.5 POSITIVE THYROID STIMULATING HORMONE 3.495 uIU/mL (0.30-3.74) CSF, Cell Count: (FARSHAD: 03/13/2017 15:19) ( [facility] 03/13/2017 15:49) Final results Test Result Flag Units (Reference) CSF TOTAL VOLUME 4.0 CC TUBE # 4 COLOR COLORLESS APPEARANCE CLEAR CSF WBC 0.5 WBC/mm3 (0-5) CSF RBC 0 RBC/mm3 (0-5) CSF GLUCOSE 76 H mg/dL (40-75) CSF PROTEIN 205.8 H mg/dL (15-45) CSF, Culture: (FARSHAD: 03/13/2017 15:19) ( [facility] 03/13/2017 16:46) IP Test Result Flag Units (Reference) GRAM STAIN, CSF DATE: 03/13/17 EPITHELIAL CELLS: RARE NO CELLS/NO BACTERIA: NO CELLS OR BACTERIA SEEN WHITE BLOOD CELLS: NONE . PROGRESS AND PROCEDURES Lumbar Puncture: Time-out completed immediately before the procedure. Lumbar puncture performed by me. Risks, benefits and alternatives were discussed. Consent was obtained from patient. Sterile technique was used. Local lidocaine anesthesia was used. The area was cleansed with Betadine. Patient was positioned right side down. A 22g needle was used. No complications observed. Opening pressure- 22 cm H2O. Color- clear. Course of Care: Patient is stable. Discussed case with hospitalist, (Mary - He saw the patient in the hospital). Reviewed test results and need for additional work-up. Agreed upon treatment plan, need for patient follow-up and decision to place in observation. Consult obtained from neurology. Dr. Scott Mason at [place] - he suggests a CTA of the head and neck. If this is negative he also suggests an MRI over the weekend. Additionally, he suggests neck physical therapy to see if this generates any improvement in the patient's headache. He says that he will be coater carbon paper through the weekend. Case discussed. Phone consult only. Patient/family counseled. Old medical records reviewed. Disposition: Admitted. Observation. CLINICAL IMPRESSION Headache. Abnormal tests: (elevated CSF protein). (Electronically signed by Yan Flores MD 03/13/2017 20:25)
--- NOTE | 2017-03-13 17:55 | ED ORDER SUMMARY ---
..... Patient: FARIDA WERN OrderSheet [facility] VisitID: [id number] [address] [place] [address] 81y, M Registration Date/Time: 03/13/2017 ORDER SHEET Weight: 112.0 kg (stated) Allergies: No Known Drug Allergy GENERAL ORDERS: Chest 1V Urgent (13:03/13/2017 Colton DELVALLE) (Ack 13:35 Julia) (14:02 RFay) Contract Consultant (Continuous) (:03/13/2017 Colton DELVALLE) (Ack 14:01 Julia) (14:07 LWhalen R.N.) CBC w Diff Urgent (:03/13/2017 Colton DELVALLE) (Ack 13:35 Julia) (14:08 LWhalen R.N.) CMP Urgent (13:03/13/2017 Colton DELVALLE) (Ack 13:35 Julia) (14:08 LWhalen R.N.) UA-Culture if indicated Urgent (13:03/13/2017 Colton DELVALLE) (Ack 13:35 Julia) (14:26 LWhalen R.N.) Amylase Urgent (:03/13/2017 Colton DELVALLE) (Ack 13:35 Julia) (14:08 LWhalen R.N.) Lipase Urgent (13:03/13/2017 Colton DELVALLE) (Ack 13:35 Julia) (14:08 LWhalen R.N.) CPK Urgent (13:03/13/2017 Colton DELVALLE) (Ack 13:35 Julia) (14:08 LWhalen R.N.) Troponin-I Urgent (:03/13/2017 Colton DELVALLE) (Ack 13:35 Julia) (14:08 LWhalen R.N.) Oxygen (2 L/min) (NC) (:03/13/2017 Colton DELVALLE) (Ack 14:01 Julia) (14:07 LWhalen R.N.) Pulse oximeter (:03/13/2017 Colton DELVALLE) (Ack 14:01 Julia) (14:07 LWhalen R.N.) EKG - ER Stat (13:31 03/13/2017 Colton DELVALLE) (Ack 13:35 Julia) (13:53 Manav) D-Dimer Urgent (13:50 03/13/2017 Colton DELVALLE) (Ack 13:55 Julia) (14:08 LWhalen R.N.) CSF, Cell Count Urgent (13:56 03/13/2017 Colton DELVALLE) (Ack 14:00 Julia) (17:08 LWhalen R.N.) CSF, Culture Urgent (13:56 03/13/2017 Colton DELVALLE) (Ack 14:00 Julia) (17:08 LWhalen R.N.) CSF, Glucose Urgent (13:56 03/13/2017 Colton DELVALLE) (Ack 14:00 Julia) (17:08 LWhalen R.N.) CSF, Protein Urgent (13:56 03/13/2017 Colton DELVALLE) (Ack 14:00 Julia) (17:06 LWhalen R.N.) LP Tray (13:56 03/13/2017 Colton DELVALLE) (Ack 14:00 Julia) (14:08 LWhalen R.N.) Consent for LP (13:56 03/13/2017 Colton DELVALLE) (Ack 14:00 Julia) (14:08 LWhalen R.N.) TSH Urgent (13:57 03/13/2017 Colton DELVALLE) (Ack 14:00 Julia) (17:06 LWhalen R.N.) CT Head wo Cont Urgent (14:00 03/13/2017 Colton DELVALLE) (Ack 14:08 Julia) (15:53 MCampbell) US Venous Bilat Urgent (15:25 03/13/2017 Colton DELVALLE) (Ack 15:35 Julia) (19:15 CBradburn R.N.) ESR Urgent (17:05 03/13/2017 Colton DELVALLE) (Ack 17:18 Manav) (19:14 CBradburn R.N.) CRP Urgent (17:05 03/13/2017 Colton DELVALLE) (Ack 17:18 OHernandez) (19:14 Juanjose R.N.) CTA Head and Neck (No) (See report) Urgent (17:35 03/13/2017 Colton DELVALLE) (Ack 17:55 Julia) (19:07 MCampbell) - (CSF for cytology) (17:37 03/13/2017 Colton DELVALLE) (Ack 18:04 Julia) (19:14 Juanjose R.N.) MEDICATION ORDERS: Clonidine PO 0.2 mg (NOW) (13:52 03/13/2017 Colton DELVALLE) (14:08 Wai R.N.) IV FLUIDS: IV Saline Lock (13:31 03/13/2017 Colton DELVALLE) (Ack 14:08 LWhalmel R.N.) Dilaudid IV 0.5 mg (May give up to a total of 2 MG. May repeat 0.5 mg every 15 min) (14:26 03/13/2017 LWhalmel R.N. verbal order read back to Colton DELVALLE) (14:28 LWhalmel R.N.) Zofran IV 4 mg (NOW) (14:28 03/13/2017 LWning R.N. verbal order read back to Colton DELVALLE) (14:28 LWhalmel R.N.) ORDER SHEET NOTES: [Electronically signed by Karen Sutherland R.N. (20:21 03/13/2017)] [Electronically signed by Yan Flores MD (20:25 03/13/2017)] [Electronically locked/signed by Karen Sutherland R.N. (20:21 03/13/2017)]
--- NOTE | 2017-03-13 17:55 | ED ORDER SUMMARY ---
..... Patient: FARIDA WREN OrderSheet [facility] VisitID: [id number] [address] [place] [address] 81y, M Registration Date/Time: 03/13/2017 ORDER SHEET Weight: 112.0 kg (stated) Allergies: No Known Drug Allergy GENERAL ORDERS: Chest 1V Urgent (13:03/13/2017 Colton DELVALLE) (Ack 13:35 Julia) (14:02 RFay) Gas Distribution Supervisor (Continuous) (:03/13/2017 Colton DELVALLE) (Ack 14:01 Julia) (14:07 LWhalen R.N.) CBC w Diff Urgent (:03/13/2017 Colton DELVALLE) (Ack 13:35 Julia) (14:08 LWhalen R.N.) CMP Urgent (13:03/13/2017 Colton DELVALLE) (Ack 13:35 Julia) (14:08 LWhalen R.N.) UA-Culture if indicated Urgent (13:03/13/2017 Colton DELVALLE) (Ack 13:35 Julia) (14:26 LWhalen R.N.) Amylase Urgent (:03/13/2017 Colton DELVALLE) (Ack 13:35 Julia) (14:08 LWhalen R.N.) Lipase Urgent (13:03/13/2017 Colton DELVALLE) (Ack 13:35 Julia) (14:08 LWhalen R.N.) CPK Urgent (13:03/13/2017 Colton DELVALLE) (Ack 13:35 Julia) (14:08 LWhalen R.N.) Troponin-I Urgent (:03/13/2017 Colton DELVALLE) (Ack 13:35 Julia) (14:08 LWhalen R.N.) Oxygen (2 L/min) (NC) (:03/13/2017 Colton DELVALLE) (Ack 14:01 Julia) (14:07 LWhalen R.N.) Pulse oximeter (:03/13/2017 Colton DELVALLE) (Ack 14:01 Julia) (14:07 LWhalen R.N.) EKG - ER Stat (13:31 03/13/2017 Colton DELVALLE) (Ack 13:35 Julia) (13:53 Manav) D-Dimer Urgent (13:50 03/13/2017 Colton DELVALLE) (Ack 13:55 Julia) (14:08 LWhalen R.N.) CSF, Cell Count Urgent (13:56 03/13/2017 Colton DELVALLE) (Ack 14:00 Julia) (17:08 LWhalen R.N.) CSF, Culture Urgent (13:56 03/13/2017 Colton DELVALLE) (Ack 14:00 Julia) (17:08 LWhalen R.N.) CSF, Glucose Urgent (13:56 03/13/2017 Colton DELVALLE) (Ack 14:00 Julia) (17:08 LWhalen R.N.) CSF, Protein Urgent (13:56 03/13/2017 Colton DELVALLE) (Ack 14:00 Julia) (17:06 LWhalen R.N.) LP Tray (13:56 03/13/2017 Colton DELVALLE) (Ack 14:00 Julia) (14:08 LWhalen R.N.) Consent for LP (13:56 03/13/2017 Colton DELVALLE) (Ack 14:00 Julia) (14:08 LWhalen R.N.) TSH Urgent (13:57 03/13/2017 Colton DELVALLE) (Ack 14:00 Julia) (17:06 LWhalen R.N.) CT Head wo Cont Urgent (14:00 03/13/2017 Colton DELVALLE) (Ack 14:08 Julia) (15:53 MCampbell) US Venous Bilat Urgent (15:25 03/13/2017 Colton DELVALLE) (Ack 15:35 Julia) (19:15 CBradburn R.N.) ESR Urgent (17:05 03/13/2017 Colton DELVALLE) (Ack 17:18 Manav) (19:14 CBradburn R.N.) CRP Urgent (17:05 03/13/2017 Colton DELVALLE) (Ack 17:18 OHernandez) (19:14 Juanjose R.N.) CTA Head and Neck (No) (See report) Urgent (17:35 03/13/2017 Colton DELVALLE) (Ack 17:55 Julia) (19:07 MCampbell) - (CSF for cytology) (17:37 03/13/2017 Colton DELVALLE) (Ack 18:04 Julia) (19:14 Juanjose R.N.) MEDICATION ORDERS: Clonidine PO 0.2 mg (NOW) (13:52 03/13/2017 Colton DELVALLE) (14:08 Wai R.N.) IV FLUIDS: IV Saline Lock (13:31 03/13/2017 Colton DELVALLE) (Ack 14:08 LWhalmel R.N.) Dilaudid IV 0.5 mg (May give up to a total of 2 MG. May repeat 0.5 mg every 15 min) (14:26 03/13/2017 LWhalmel R.N. verbal order read back to Colton DELVALLE) (14:28 LWhalmel R.N.) Zofran IV 4 mg (NOW) (14:28 03/13/2017 LWning R.N. verbal order read back to Colton DELVALLE) (14:28 LWhalmel R.N.) ORDER SHEET NOTES: [Electronically signed by Karen Sutherland R.N. (20:21 03/13/2017)] [Electronically signed by Yan Flores MD (20:25 03/13/2017)] [Electronically locked/signed by Karen Sutherland R.N. (20:21 03/13/2017)]
--- NOTE | 2017-03-13 17:55 | ED CLINICAL REPORT ---
Clinical Report - Physicians/Mid Levels [facility] [address] [place] [address] 03/13/2017 12:06 Patient: CHRIS WREN Time Seen: 12:29. Arrived- By private vehicle. Historian- patient. HISTORY OF PRESENT ILLNESS Chief Complaint: HEADACHE. Is still present. This started about 5 days ago. It was abrupt in onset and has been constant and waxing/waning. It is described as pressure and "like a steel band across there". Located in the frontal region. No neck pain. At its maximum, severity described as 9 / 10. When seen in the E.D., severity described as 5 / 10. The patient has had nausea and vomiting. No blood-tinged emesis or coffee-grounds emesis. He has had numbness of the right foot (mild) and left foot (mild). No blurred vision or photophobia. Recent medical care: The patient was seen recently at this facility. Seen for similar symptoms. REVIEW OF SYSTEMS No chills, fever, sweats, nasal congestion or runny nose. No sinus pain, chest pain, cough, difficulty breathing or pedal edema. No palpitations, abdominal pain, constipation, diarrhea or urinary problems. The patient has had mild calf pain involving the right leg and left leg. All systems otherwise negative, except as recorded above. PAST HISTORY PCP - Deniz. Problems: Hypertension. Headache. Degenerative Joint Disease. Arthritis. Hypothyroidism. Back Pain. Additional Surgeries: Cataract Surgery. Knee replacement. Medications: Aspir-81 Oral. Meloxicam Oral. Simvastatin Oral. Hydrocodone-Acetaminophen Oral. TraZODone HCl Oral. Levothyroxine Sodium Oral. Metoprolol Tartrate Oral. Hydrochlorothiazide Oral. Allergies: No Known Drug Allergy. SOCIAL HISTORY Smoker- current status unknown. FAMILY HISTORY Stroke in first-degree relative (mother and father). ADDITIONAL NOTES The nursing notes have been reviewed. PHYSICAL EXAM Vital Signs: 03/13/2017 12:15 BP: 200/98. HR: 60. RR: 18. O2 saturation: 97%. Temp: 98.4 F. Have been reviewed. Appearance: Alert. Eyes: Pupils equal, round and reactive to light. Funduscopic exam normal. Eyes normal inspection. No photophobia. ENT: Ears normal. Nose normal. Pharynx normal. Neck: Mild meningeal signs present. There is a positive Kernig's sign. No carotid bruit. CVS: Normal heart rate and rhythm. Heart sounds normal. Respiratory: No respiratory distress. Breath sounds normal. Abdomen: Soft and nontender. No organomegaly. Back: Normal inspection. Mildly limited ROM in the back- in the lumbar spine. No CVA tenderness. Skin: Skin warm and dry. Normal skin color. Normal skin turgor. Extremities: Extremities exhibit normal ROM. No calf tenderness. No lower extremity edema. Neuro: Alert. Mood/affect normal. Speech normal. Cranial nerves normal (as tested). No cerebellar findings. No motor deficit. No sensory deficit. LABS, X-RAYS, AND EKG EKG: No acute process. Rate: 60. LVH. EKG unchanged when compared with prior EKG. (28 Oct 2011). The study has been independently viewed by me. Chest X-ray: (PROCEDURE: XR CHEST 1 VIEW INDICATION: HEADACHE/BACK PAIN TECHNIQUE: Portable AP view 01:40 p.m. COMPARISON: Chest x-ray 10/28/2011. FINDINGS: Poor inspiration with mild elevation of the right hemidiaphragm and mild right basilar scarring. Left lung is clear. Heart and mediastinum are normal. Thorax is normal. IMPRESSION: 1. No acute changes 2. Poor inspiration with elevation of the right hemidiaphragm and mild right basilar scarring). The X-rays were interpreted by the radiologist and contemporaneously by me. CT Head: No acute changes. The study was interpreted by the radiologist and contemporaneously by me. Lower Extremity Sonography: Negative exam. bilateral lower extremities discussed with the certified cytotechnologist. The study was independently viewed by me. Note - Special Studies: Name: Chris Wren : 1935 MR#: [id number] Ordering Provider: YAN FLORES Exam(s): CTA HEAD AND NECK Date of Exam: 03/13/2017 __ PROCEDURE: CTA HEAD AND NECK INDICATION: HEADACHE TECHNIQUE: Axial thin-slice CTA images through the neck and head were acquired following uncomplicated administration of 120 ml Isovue 370 IV contrast. Coronal and sagittal MIP reformations were created. COMPARISON: Head CT 03/13/2017 FINDINGS: Head: Anterior circulation: Moderate amount of atherosclerotic calcification involving the intracranial internal carotid arteries bilaterally. The anterior communicating artery is not visible. A wispy posterior communicating arteries present on the right. Non-visualized left-sided posterior communicating artery. Anterior and middle cerebral arteries are patent without stenosis or aneurysm. Posterior circulation: Posterior cerebral arteries are patent. No basilar terminus aneurysm. Non-visualized right anterior inferior cerebellar artery, however there appear to be collaterals from the left perfusing the right cerebellar hemisphere. Other findings: No abnormal parenchymal enhancement or vascular malformation. Neck: Carotid system: Mildly tortuous course of the right proximal common carotid. Common carotid arteries are normal in caliber. Mild calcification of the left carotid bulb without causing significant luminal stenosis. Normal-caliber internal carotid arteries bilaterally. External carotids are patent. No dissection. Vertebral system: Normal vertebral artery origins. The left slightly larger than the right. No evidence of dissection. Other findings: Severe degeneration at the atlantodental interval and at the C6-7 and C7-T1 disc levels. Severe facet degeneration throughout the cervical spine. IMPRESSION: 1. No evidence of stenosis, or dissection in the carotid or vertebral system. 2. No evidence of intracranial aneurysm or acute arterial stenosis. 3. Severe degenerative change in the cervical spine. Laboratory Tests: UA-Culture if indicated: (FARSHAD: 03/13/2017 14:24) ( MsgRcvd 03/13/2017 14:44) Final results Test Result Flag Units (Reference) URINE COLOR YELLOW URINE APPEARANCE CLEAR URINE GLUCOSE NEGATIVE (NEGATIVE) URINE BILIRUBIN NEGATIVE (NEGATIVE) URINE KETONE NEGATIVE (NEGATIVE) URINE SPECIFIC GRAVITY <= 1.005 L (1.010-1.030) URINE PH 7.0 (5.0-8.0) URINE PROTEIN NEGATIVE (NEGATIVE) URINE UROBILINOGEN 0.2 EU/dL (0.2-1.0) URINE NITRITE NEGATIVE (NEGATIVE) URINE BLOOD NEGATIVE (NEGATIVE) URINE LEUK ESTERASE NEGATIVE (NEGATIVE) URINE RBC NONE SEEN rbc/hpf (0-1) URINE WBC RARE wbc/hpf (0-1) URINE EPITHELIAL CELLS NONE SEEN EPI/hpf (0-5) URINE BACTERIA NONE SEEN (NONE SEEN) URINE COMMENT CULT NOT INDICATED URINE CULTURES ARE SET-UP BASED ON THE FOLLOWING CRITERIA:POSITIVE NITRITEPOSITIVE LEUKOCYTE ESTERASEGREATER THAN 10 WHITE BLOOD CELLSMODERATE (2+) OR GREATER BACTERIA ESR: (FARSHAD: 03/13/2017 14:21) ( [facility] 03/13/2017 17:48) Final results Test Result Flag Units (Reference) SED RATE WESTERGREN 8 mm/hr (0-20) CBC w Diff: (FARSHAD: 03/13/2017 14:21) ( [facility] 03/13/2017 14:32) Final results Test Result Flag Units (Reference) WHITE BLOOD COUNT 13.1 H K/uL (4.5-11.5) RED BLOOD COUNT 5.20 M/uL (4.50-5.90) HEMOGLOBIN 15.2 gm/dL (13.5-17.5) HEMATOCRIT 45.3 % (41.0-53.0) MEAN CELL VOLUME 87 fL (80-100) MEAN CORPUSCULAR HGB 29 pg (26-34) MEAN CORPUSCULAR HGB CONC 34 g/dL (31-37) RED CELL DISTRIBUTION WIDTH 13.6 % (11.6-14.8) PLATELET COUNT 334 K/uL (150-400) NEUTROPHIL % 75.5 H % (50-75) LYMPH % 13.3 L % (25-40) MONO % 9.1 % (3-14) EOSINOPHIL % 1.8 % (0-4) BASOPHIL % 0.3 % (0-2) [id number]: (FARSHAD: 03/13/2017 14:21) ( [facility] 03/13/2017 14:45) Final results Test Result Flag Units (Reference) D-DIMER QUANTITATIVE 0.55 H ug/mLFEU (0.27-0.52) The primary value of this quantitative assay relates toits negative predictive value (i.e. exclusion) of pulmonaryembolism/deep vein thrombosis/DIC.Elevated levels of d-dimer may also occur with:, age, cancer, inflammation, liver disease,post-op, infection, hematoma, coronary disease, peripheralarteriopathy, bleeding disorders and thrombolytic treatment.Results should be correlated with other clinical andradiological data.Testing Methodology: Latex Immunoassay [id number]: (FARSHAD: 03/13/2017 14:21) ( [facility] 03/13/2017 17:57) Final results Test Result Flag Units (Reference) C-REACTIVE PROTEIN < 0.2 mg/dL (0.0-0.9) CMP: (FARSHAD: 03/13/2017 14:21) ( [facility] 03/13/2017 15:01) Final results Test Result Flag Units (Reference) GLUCOSE 131 H mg/dL (70-110) BUN 20 H mg/dL (7-18) CREATININE 0.9 mg/dL (0.6-1.3) Estimated GFR >60 mL/min Estimated GFR- >60 mL/min Note: Persistent reduction over 3 months in eGFR<60 mL/min/1.73 m2 defines CKD. Patients with eGFR values>=60 mL/min/1.73 m2 may also have CKD if evidence ofpersistent proteinuria. Additional information may be foundat www.kidney.org. SODIUM 135 L mmol/L (136-145) POTASSIUM 4.5 mmol/L (3.5-5.1) CHLORIDE 97 L mmol/L (98-107) CARBON DIOXIDE 29 mmol/L (21-32) CALCIUM 9.1 mg/dL (8.5-10.1) TOTAL PROTEIN 8.5 H g/dL (6.4-8.2) ALBUMIN 4.2 g/dL (3.3-5.0) BILIRUBIN, TOTAL 0.7 mg/dL (0.0-1.0) ALKALINE PHOSPHATASE 50 U/L (46-116) AST (SGOT) 21 U/L (15-37) ALT (SGPT) 30 U/L (12-78) LIPASE 93 U/L (73-393) AMYLASE 52 U/L (25-115) CPK 68 U/L (24-260) TROPONIN I <0.05 ng/mL (0.00-1.5) TROPONIN REFERENCE RANGE:<0.1 NEGATIVE0.1-1.5 INDETERMINANT>1.5 POSITIVE THYROID STIMULATING HORMONE 3.495 uIU/mL (0.30-3.74) CSF, Cell Count: (FARSHAD: 03/13/2017 15:19) ( [facility] 03/13/2017 15:49) Final results Test Result Flag Units (Reference) CSF TOTAL VOLUME 4.0 CC TUBE # 4 COLOR COLORLESS APPEARANCE CLEAR CSF WBC 0.5 WBC/mm3 (0-5) CSF RBC 0 RBC/mm3 (0-5) CSF GLUCOSE 76 H mg/dL (40-75) CSF PROTEIN 205.8 H mg/dL (15-45) CSF, Culture: (FARSHAD: 03/13/2017 15:19) ( [facility] 03/13/2017 16:46) IP Test Result Flag Units (Reference) GRAM STAIN, CSF DATE: 03/13/17 EPITHELIAL CELLS: RARE NO CELLS/NO BACTERIA: NO CELLS OR BACTERIA SEEN WHITE BLOOD CELLS: NONE . PROGRESS AND PROCEDURES Lumbar Puncture: Time-out completed immediately before the procedure. Lumbar puncture performed by me. Risks, benefits and alternatives were discussed. Consent was obtained from patient. Sterile technique was used. Local lidocaine anesthesia was used. The area was cleansed with Betadine. Patient was positioned right side down. A 22g needle was used. No complications observed. Opening pressure- 22 cm H2O. Color- clear. Course of Care: Patient is stable. Discussed case with hospitalist, (Mary - He saw the patient in the hospital). Reviewed test results and need for additional work-up. Agreed upon treatment plan, need for patient follow-up and decision to place in observation. Consult obtained from neurology. Dr. Scott Mason at [facility] - he suggests a CTA of the head and neck. If this is negative he also suggests an MRI over the weekend. Additionally, he suggests neck physical therapy to see if this generates any improvement in the patient's headache. He says that he will be vault person through the weekend. Case discussed. Phone consult only. Patient/family counseled. Old medical records reviewed. Disposition: Admitted. Observation. CLINICAL IMPRESSION Headache. Abnormal tests: (elevated CSF protein). (Electronically signed by Yan Flores MD 03/13/2017 20:25)
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
--- NOTE | 2017-03-13 19:01 | DIAGNOSTIC IMAGING REPORT ---
PROCEDURE: CTA HEAD AND NECK INDICATION: HEADACHE TECHNIQUE: Axial thin-slice CTA images through the neck and head were acquired following uncomplicated administration of 120 ml Isovue 370 IV contrast. Coronal and sagittal MIP reformations were created. COMPARISON: Head CT 03/13/2017 FINDINGS: Head: Anterior circulation: Moderate amount of atherosclerotic calcification involving the intracranial internal carotid arteries bilaterally. The anterior communicating artery is not visible. A wispy posterior communicating arteries present on the right. Non-visualized left-sided posterior communicating artery. Anterior and middle cerebral arteries are patent without stenosis or aneurysm. Posterior circulation: Posterior cerebral arteries are patent. No basilar terminus aneurysm. Non-visualized right anterior inferior cerebellar artery, however there appear to be collaterals from the left perfusing the right cerebellar hemisphere. Other findings: No abnormal parenchymal enhancement or vascular malformation. Neck: Carotid system: Mildly tortuous course of the right proximal common carotid. Common carotid arteries are normal in caliber. Mild calcification of the left carotid bulb without causing significant luminal stenosis. Normal-caliber internal carotid arteries bilaterally. External carotids are patent. No dissection. Vertebral system: Normal vertebral artery origins. The left slightly larger than the right. No evidence of dissection. Other findings: Severe degeneration at the atlantodental interval and at the C6-7 and C7-T1 disc levels. Severe facet degeneration throughout the cervical spine. IMPRESSION: 1. No evidence of stenosis, or dissection in the carotid or vertebral system. 2. No evidence of intracranial aneurysm or acute arterial stenosis. 3. Severe degenerative change in the cervical spine. 4. Discussed with Dr. Flores in the emergency room.
--- NOTE | 2017-03-13 19:50 | Progress Note ---
Subjective General Admission History and Physical Examination Patient Name: Chris Castellanos Admission Date: March 13, 2017 Primary Care Provider: Apurva Guaman M.D. Attending Physician: Bob Singh M.D. Admitting Physician: Scott Hernandez M.D. Code Status: FULL CODE Room: [facility] Status: Observation, ACU SUBJECTIVE Historian: Patient Reliability: Fair Chief Complaint: Headache History of Present Illness: The patient is a 81-year-old white male with a significant past medical history of hypertension, lumbar disc disease, hypercholesterolemia, hypothyroidism, who presented to [facility] emergency department on the day of admission secondary to complaints of headache of 5 days duration. [facility] ER evaluation was consistent with intractable headache of unclear etiology. Following consultation with neurology it was elected to admit the patient for observation due to high CSF protein level. Secondary to the above, the patient was admitted by Scott Hernandez M.D. for further evaluation and treatment. The history of present was began approximately 5-6 days prior to admission when the patient developed bifrontal headache. This was pressure-like in character. It extended into the left eye and sinus regions (maxillary) bilaterally. There is no associated fever or chills. The patient denied nuchal rigidity. There were no associated neurological deficits. The patient does give a history of bilateral arm and bilateral leg pain. There was no arm or leg weakness. Secondary to the above the patient was seen for evaluation at [facility] emergency department. [facility] ER evaluation included CT scan of the head, CTA of the head which showed no acute abnormalities other than sinus disease and severe degenerative changes in cervical spine. Lumbar puncture was obtained which showed elevated protein at over 200 and high glucose. Cell count was within normal limits. [facility], Dr. Scott Camejo, was consulted and recommended the patient be observed overnight and recommended we obtain MRI in a.m. Secondary to but the patient was admitted for further evaluation and treatment under observational status. PAST MEDICAL HISTORY Illnesses: 1. Hypertension 2. Hypothyroidism 3. Hyperlipidemia 4. Lumbar disc disease 5. Degenerative joint disease-status post bilateral TKA 6. Carpal tunnel syndrome Allergies: 1. No Known Drug Allergies Medications: 1. Aspirin 81 mg 1 by mouth daily 2. Simvastatin 40 mg by mouth daily 3. Trazodone 25 mg by mouth daily 4. Lopressor 25 mg by mouth twice a day 5. Hydrochlorothiazide 12.5 mg by mouth daily 6. Synthroid 0.05 mg by mouth daily 7. Vicodin 5/325 1 by mouth every 4 hours when necessary pain 8. Meloxicam 15 mg by mouth daily 9. Colace 1 by mouth daily Surgery: 1. Tonsillectomy 2. TKA bilateral Injuries: 1. No significant Hospitalizations: 1. For above surgery and medical problems FAMILY HISTORY Parents: 1. Father, , 86, CVA, 2. Mother, , 86, CVA Siblings: 1. Female, Janki, living, 90, healthy 2. Female, Eula, , age unknown, also Alzheimer's dementia Children: 1. Male, Jose Raul, living, 59, 2. Male, tatiana, living, 58, healthy 3. Female, Griselda, living, 57, healthy 4. Female, Lindsey, , 46, diabetes mellitus, renal failure, CHF 5. Female, Lissette, living, 47, diabetes mellitus, hypothyroidism Other significant family history: None SOCIAL HISTORY 1. Marital Status: 2. Sikh: Bahai 3. Education: High school 4. 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 Occupational health exposures: Dust, asbestos, lead, loud noises, heavy lifting 6. Current residence: Patient lives in his own home HABITS 1. Tobacco: Distant usage, stopped 1969, heavy smoker prior to discontinuation 2. Drugs: None 3. Alcohol: None 4. Caffeine: Coffee 1-2 cups per day HEALTH SUPERVISION Item/Test 1. Not reviewed IMMUNIZATIONS: 1. Pneumococcal: Unknown 2. Influenza: 2016 3. Tetanus: Unknown ADVANCED DIRECTIVES: 1. Living well: Yes 2. POLST: No 3. Code Status: FULL CODE 4. Durable [employer] Health care: Yes 5. Donor card: Yes REVIEW OF SYSTEMS Remarkable for those things stated in the history of present illness and past medical history. Seventeen point review of system completed with the following notable findings: General: Fatigue, headache, arm pain, leg pain, weakness and generalized Skin: Dryness Eyes: Pain, dryness Ears: Hearing loss Mouth: Edentulous, dentures Throat: Sore throat Respiratory: Cough, sputum production Cardiovascular: Hypertension, leg pain with ambulation, shortness of breath with exertion Gastrointestinal: Nausea, vomiting, loss of appetite Musculoskeletal: Joint pain, joint swelling, muscle cramping, backache Neurological: Tremors, headaches, paresthesias Endocrine: Hlxwnrj-wtdnpryn-hlkhbhijxjxyts Psychological: Depression, insomnia, loss of interest in enjoyable events Physical Exam General Appearance Alert, Oriented X3, Cooperative, No acute distress HEENT Atraumatic, PERRLA, EOMI, Moist mucous membranes Lungs Clear to auscultation, Normal air movement Neck Supple, No JVD, 2+ carotid pulse wo bruit Cardiovascular Regular rate and rhythm, Normal S1 and S2, No murmurs, gallops, rubs Abdomen Normal bowel sounds, Soft, No tenderness Extremities No cyanosis, No clubbing, No edema Neurological Cranial nerves intact, Strength 5/5 x4 ext's, No lateralizing signs Psych/Mental Status Mental status normal, Mood normal LAB Results Laboratory Tests 03/13 03/13 03/13 1519 1424 1421 Chemistry C-Reactive Protein (0.0 - 0.9 mg/dL) < 0.2 Hematology ESR Westergren (0 - 20 mm/hr) 8 Other Body Source CSF Tube Number 4 CSF Volume (CC) 4.0 CSF Appearance CLEAR CSF Color COLORLESS CSF WBC (0 - 5 WBC/mm3) 0.5 CSF RBC (0 - 5 RBC/mm3) 0 CSF Glucose (40 - 75 mg/dL) 76 CSF Total Protein (15 - 45 mg/dL) 205.8 Urines Urine Color YELLOW Urine Appearance CLEAR Urine pH (5.0 - 8.0) 7.0 Ur Specific Trinity (1.010 - 1.030) <= 1.005 Urine Protein (NEGATIVE) NEGATIVE Urine Ketones (NEGATIVE) NEGATIVE Urine Blood (NEGATIVE) NEGATIVE Urine Nitrite (NEGATIVE) NEGATIVE Urine Bilirubin (NEGATIVE) NEGATIVE Urine Urobilinogen (0.2 - 1.0 EU/dL) 0.2 Ur Leukocyte Esterase (NEGATIVE) NEGATIVE Urine RBC (0 - 1 rbc/hpf) NONE SEEN Urine WBC (0 - 1 wbc/hpf) RARE Ur Epithelial Cells (0 - 5 EPI/hpf) NONE SEEN Urine Bacteria (NONE SEEN) NONE SEEN Urine Glucose (NEGATIVE) NEGATIVE Urine Comment CULT NOT INDICATED 03/13 03/13 1421 1357 Chemistry Plasma Sodium (136 - 145 mmol/L) 135 Plasma Potassium (3.5 - 5.1 mmol/L) 4.5 Plasma Chloride (98 - 107 mmol/L) 97 CO2 (Enzymatic) (21 - 32 mmol/L) 29 BUN (7 - 18 mg/dL) 20 Creatinine (0.6 - 1.3 mg/dL) 0.9 Est GFR ( Amer) (mL/min) >60 Est GFR (Non-Af Amer) (mL/min) >60 Glucose (70 - 110 mg/dL) 131 Plasma Calcium (8.5 - 10.1 mg/dL) 9.1 Total Bilirubin (0.0 - 1.0 mg/dL) 0.7 AST (15 - 37 U/L) 21 ALT (12 - 78 U/L) 30 Alkaline Phosphatase (46 - 116 U/L) 50 Creatine Kinase (24 - 260 U/L) 68 Troponin (0.00 - 1.5 ng/mL) <0.05 Total Protein (6.4 - 8.2 g/dL) 8.5 Albumin (3.3 - 5.0 g/dL) 4.2 Amylase (25 - 115 U/L) 52 Lipase (73 - 393 U/L) 93 TSH 3rd Generation (0.30 - 3.74 uIU/mL) 3.495 Cancelled Coagulation D-Dimer, Quantitative (0.27 - 0.52 ug/mLFEU) 0.55 Hematology WBC (4.5 - 11.5 K/uL) 13.1 RBC (4.50 - 5.90 M/uL) 5.20 Hgb (13.5 - 17.5 gm/dL) 15.2 Hct (41.0 - 53.0 %) 45.3 MCV (80 - 100 fL) 87 MCH (26 - 34 pg) 29 RDW (11.6 - 14.8 %) 13.6 Neut % (Auto) (50 - 75 %) 75.5 Lymph % (Auto) (25 - 40 %) 13.3 Piatt % (Auto) (3 - 14 %) 9.1 Eos % (Auto) (0 - 4 %) 1.8 Baso % (Auto) (0 - 2 %) 0.3 Plt Count, EDTA (150 - 400 K/uL) 334 PUBS MCHC (31 - 37 g/dL) 34 Microbiology Date/Time Procedure - Status Source Growth 03/13 1519 CSF Culture - RES CSF 03/13 1519 Gram Stain - RES CSF Assessment and Plan Problem List 1. Intractable headache Plan -The patient presents with findings of intractable frontal headache -No associated neurological deficits -CT scan, CT angiogram-head unremarkable -Lumbar puncture remarkable for elevated protein and glucose, cell count unremarkable -Sedimentation rate/CRP unremarkable -Neurology recommends admission overnight with follow-up MRI in a.m. -Pain control with Dilaudid/Toradol -Monitor 2. Hypertension, uncontrolled Plan -Patient presents with uncontrolled hypertension -Lisinopril 10 mg by mouth twice a day -Lopressor 50 mg by mouth twice a day -Monitor -Low-salt diet 3. Hypothyroidism Status Chronic Onset Date Unknown Plan -Patient with long-standing history of hypothyroidism -TSH within normal limits -Continue outpatient medical regimen -Outpatient follow-up with PCP 4. Hyperglycemia Status Acute Onset Date Unknown Plan -Patient with mild hyperglycemia -Accu-Chek before meals and at bedtime -Hemoglobin A1c -Insulin sliding scale as needed 5. Hyponatremia Status Acute Onset Date Unknown Plan -Mild hyponatremia -Monitor -No fluid restriction at this time or further workup 6. Prerenal azotemia Status Acute Onset Date Unknown Plan -Patient has findings of prerenal azotemia -Mild elevation of BUN/creatinine ratio -History of diuretic use with poor oral intake and vomiting recently -IV fluid therapy, monitor I&O 7. Leukocytosis Status Acute Onset Date Unknown Plan -Patient with mild leukocytosis -CRP, sedimentation rate unremarkable -No obvious signs of infection -LP unremarkable other than hyperproteinemia/glycemia -Monitor 8. Hyperlipidemia Status Chronic Onset Date Unknown Plan -Patient with history of hyperlipidemia -Low fat/low cholesterol diet -Continue statin therapy -Check lipid profile in a.m. Current status: Fair, unstable Anticipated discharge date: Anticipated discharge in 24 hours with outpatient follow-up with PCP/neurology Anticipated discharge placement: Home Patient care time: Time spent in chart review, patient interview, physical exam, CPOE, and care documentation: 70 minutes Visit to patient today: 2 Complexity of care: High Initial patient evaluation: Emergency department DVT prophylaxis: SCD GI prophylaxis: Protonix 40 mg by mouth daily Advance care plan: Advance care plan discussed. Code Status established-Full Code. We'll perform advance care interview in a.m. E&M Codes Admission: Obsv-Comp/High/04113
--- NOTE | 2017-03-13 20:25 | ED DISCHARGE INSTRUCTIONS ---
Patient: FARIDA WREN General Instructions [facility] VisitID: [id number] [address] [place] [address] 81y, M Registration Date/Time: 03/13/2017 Headache. Abnormal tests: (elevated CSF protein). (Electronically signed by Yan Flores MD 03/13/2017 20:25)
--- NOTE | 2017-03-13 20:25 | ED MED RECONCILIATION SUMMARY ---
Patient: FARIDA WREN Medication Reconciliation Report [facility] VisitID: [id number] [address] [place] [address] 81y, M Registration Date/Time: 03/13/2017 Weight: 112.0 kg Height/Length: 71 in. BMI: 34.5 ALLERGIES: No Known Drug Allergy The patient's Home Medications are listed below: THE FOLLOWING MEDICATIONS NEED TO BE RECONCILED: Aspir-81 Oral Hydrochlorothiazide Oral Hydrocodone-Acetaminophen Oral Levothyroxine Sodium Oral Meloxicam Oral Metoprolol Tartrate Oral Simvastatin Oral TraZODone HCl Oral The source(s) of the original Home Medication information: Not obtained. The following Medications were given to the patient in the Emergency Department: Clonidine [PO] PO 0.2 mg, administered: 03/13/2017 2:08:00 PM Dilaudid [IVP] IVP 0.5 mg, administered: 03/13/2017 2:28:00 PM Zofran [IVP] IVP 4 mg, administered: 03/13/2017 2:28:00 PM Dilaudid [IVP] IVP 0.5 mg, administered: 03/13/2017 5:01:00 PM The following Medications were prescribed to the patient: None.
--- NOTE | 2017-03-13 20:25 | ED MAR SUMMARY ---
..... Medication Administration Record [facility] [address] [place] [place] [address] Patient: FARIDA WREN Visit ID: [id number] 81y, M Weight: 112.0 kg Height/Length: 71 in BMI: 34.5 ALLERGIES: No Known Drug Allergy Given 14:08 03/13/2017 Jade Serrano R.N. Medication Administered: CLONIDINE [PO], Dose: 0.2 mg Tablets PO. Medication Ordered: Clonidine PO 0.2 mg (NOW). Given 14:03/13/2017 Jade Serrano R.N. Medication Administered: DILAUDID [IVP] (HYDROMORPHONE HCL PF), Dose: 0.5 mg IVP over 1 minute(s), Site: #1 right wrist. Medication Ordered: Dilaudid IV 0.5 mg (May give up to a total of 2 MG. May repeat 0.5 mg every 15 min). Given 14:03/13/2017 Jade Serrano R.N. Medication Administered: ZOFRAN [IVP] (ONDANSETRON HCL), Dose: 4 mg IVP over 2 minute(s), Site: #1 right wrist. Medication Ordered: Zofran IV 4 mg (NOW). Given 17:01 03/13/2017 Jade Serrano R.N. Medication Administered: DILAUDID [IVP] (HYDROMORPHONE HCL PF), Dose: 0.5 mg IVP over 2 minute(s), Site: #1 right wrist. Medication Ordered: Dilaudid IV 0.5 mg (May give up to a total of 2 MG. May repeat 0.5 mg every 15 min).
--- NOTE | 2017-03-13 20:25 | ED MED RECONCILIATION SUMMARY ---
Patient: FARIDA WREN Medication Reconciliation Report [facility] VisitID: [id number] [address] [place] [address] 81y, M Registration Date/Time: 03/13/2017 Weight: 112.0 kg Height/Length: 71 in. BMI: 34.5 ALLERGIES: No Known Drug Allergy The patient's Home Medications are listed below: THE FOLLOWING MEDICATIONS NEED TO BE RECONCILED: Aspir-81 Oral Hydrochlorothiazide Oral Hydrocodone-Acetaminophen Oral Levothyroxine Sodium Oral Meloxicam Oral Metoprolol Tartrate Oral Simvastatin Oral TraZODone HCl Oral The source(s) of the original Home Medication information: Not obtained. The following Medications were given to the patient in the Emergency Department: Clonidine [PO] PO 0.2 mg, administered: 03/13/2017 2:08:00 PM Dilaudid [IVP] IVP 0.5 mg, administered: 03/13/2017 2:28:00 PM Zofran [IVP] IVP 4 mg, administered: 03/13/2017 2:28:00 PM Dilaudid [IVP] IVP 0.5 mg, administered: 03/13/2017 5:01:00 PM The following Medications were prescribed to the patient: None.
--- NOTE | 2017-03-13 20:25 | ED DISCHARGE INSTRUCTIONS ---
Patient: FARIDA WREN General Instructions [facility] VisitID: [id number] [address] [place] [address] 81y, M Registration Date/Time: 03/13/2017 Headache. Abnormal tests: (elevated CSF protein). (Electronically signed by Yan Flores MD 03/13/2017 20:25)
--- NOTE | 2017-03-13 20:25 | ED MAR SUMMARY ---
..... Medication Administration Record [facility] [address] [place] [address] Patient: FARIDA WREN Visit ID: [id number] 81y, M Weight: 112.0 kg Height/Length: 71 in BMI: 34.5 ALLERGIES: No Known Drug Allergy Given 14:08 03/13/2017 Jade Serrano R.N. Medication Administered: CLONIDINE [PO], Dose: 0.2 mg Tablets PO. Medication Ordered: Clonidine PO 0.2 mg (NOW). Given 14:03/13/2017 Jade Serrano R.N. Medication Administered: DILAUDID [IVP] (HYDROMORPHONE HCL PF), Dose: 0.5 mg IVP over 1 minute(s), Site: #1 right wrist. Medication Ordered: Dilaudid IV 0.5 mg (May give up to a total of 2 MG. May repeat 0.5 mg every 15 min). Given 14:03/13/2017 Jade Serrano R.N. Medication Administered: ZOFRAN [IVP] (ONDANSETRON HCL), Dose: 4 mg IVP over 2 minute(s), Site: #1 right wrist. Medication Ordered: Zofran IV 4 mg (NOW). Given 17:01 03/13/2017 Jade Serrano R.N. Medication Administered: DILAUDID [IVP] (HYDROMORPHONE HCL PF), Dose: 0.5 mg IVP over 2 minute(s), Site: #1 right wrist. Medication Ordered: Dilaudid IV 0.5 mg (May give up to a total of 2 MG. May repeat 0.5 mg every 15 min).
[2017-03-13 20:33] VITALS: BP 187/92
[2017-03-13 22:20] VITALS: BP 177/87
[2017-03-14 02:16] VITALS: BP 174/81
[2017-03-14] MEDS ORDERED: SIMVASTATIN40 MG PO (03:47)
[2017-03-14] MEDS ORDERED: HYDROCHLOROTH12.5 MG PO (03:48)
[2017-03-14] MEDS ORDERED: LOPRESSOR25 MG PO (03:48)
[2017-03-14] MEDS ORDERED: VICODIN EQUIVAL1 TAB PO (03:49)
[2017-03-14] MEDS ORDERED: ASPIRIN ADULT L81 MG PO (03:50)
[2017-03-14] MEDS ORDERED: LEVOTHYROXINE50 MCG PO (03:50)
[2017-03-14] MEDS ORDERED: MELOXICAM15 MG PO (03:50)
[2017-03-14] MEDS ORDERED: TRAZODONE HCL50 MG PO (03:50)
[2017-03-14] MEDS ORDERED: STOOL SOFTENER100 M1 PO (03:51)
[2017-03-14 06:50] VITALS: BP 166/82
--- NOTE | 2017-03-14 07:51 | Progress Note ---
Subjective General Note Date: 03/14/2017 Admission Date: 2016 Hospital Day: Due to observation PCP: [PCP] Eleuterio Guaman Status: Stable Advanced Directive:Full Code Room: 203 81-year-old white male with a significant past medical history of hypertension, lumbar disc disease, hypercholesterolemia, hypothyroidism, who presented to [facility] emergency department on the day of admission secondary to complaints of headache of 5 days duration. [facility] ER evaluation was consistent with intractable headache of unclear etiology. Following consultation with neurology it was elected to admit the patient for observation due to high CSF protein level. Secondary to the above, the patient was admitted by Scott Hernandez M.D. for further evaluation and treatment. Subjective complaints: Patient reports that he is experiencing significant improvement. Patient is not complaining of headaches at the moment. Patient is up walking. Patient states of the headache is less. Patient is a pulmonary urinate. Has not defecated this morning. Reports that he is eating the smell. No nausea or vomiting Constitutional Denies: Chills, Sweats. Eyes Denies: Conjunctival Inflammation. ENT Denies: Ear Discharge. Respiratory Denies: SOB w/exertion, Wheezing. Physical Exam Vital Signs / I&Os Vital Signs Date Time Temp Pulse Resp B/P Pulse O2 O2 Flow FiO2 Ox Delivery Rate 03/14 0650 97.9 59 22 166/82 97 Room Air 0.0 03/14 0216 97.7 65 22 174/81 97 Room Air 03/14 0115 Room Air 03/13 2220 97.5 65 20 177/87 96 Nasal 1.0 Cannula 03/13 2033 98.2 66 20 187/92 100 Nasal 2.0 Cannula I&O 03/13 0800 03/13 1600 03/14 0000 Intake Total Output Total Balance General Appearance Oriented X3, Cooperative HEENT Atraumatic, PERRLA Lungs Clear to auscultation Neck Supple Cardiovascular Regular rate and rhythm, Normal S1 and S2 Abdomen Soft, No tenderness Extremities No clubbing, No edema Skin No Breakdown Neurological Normal speech Psych/Mental Status Mood normal LAB Results Laboratory Tests 03/13 03/13 03/13 1357 1421 1421 Chemistry Plasma Sodium (136 - 145 mmol/L) 135 Plasma Potassium (3.5 - 5.1 mmol/L) 4.5 Plasma Chloride (98 - 107 mmol/L) 97 CO2 (Enzymatic) (21 - 32 mmol/L) 29 BUN (7 - 18 mg/dL) 20 Creatinine (0.6 - 1.3 mg/dL) 0.9 Est GFR ( Amer) (mL/min) >60 Est GFR (Non-Af Amer) (mL/min) >60 Glucose (70 - 110 mg/dL) 131 Plasma Calcium (8.5 - 10.1 mg/dL) 9.1 Total Bilirubin (0.0 - 1.0 mg/dL) 0.7 AST (15 - 37 U/L) 21 ALT (12 - 78 U/L) 30 Alkaline Phosphatase (46 - 116 U/L) 50 Creatine Kinase (24 - 260 U/L) 68 Troponin (0.00 - 1.5 ng/mL) <0.05 C-Reactive Protein (0.0 - 0.9 mg/dL) < 0.2 Total Protein (6.4 - 8.2 g/dL) 8.5 Albumin (3.3 - 5.0 g/dL) 4.2 Amylase (25 - 115 U/L) 52 Lipase (73 - 393 U/L) 93 TSH 3rd Generation (0.30 - 3.74 uIU/mL) Cancelled 3.495 Coagulation D-Dimer, Quantitative (0.27 - 0.52 ug/mLFEU) 0.55 Hematology WBC (4.5 - 11.5 K/uL) 13.1 RBC (4.50 - 5.90 M/uL) 5.20 Hgb (13.5 - 17.5 gm/dL) 15.2 Hct (41.0 - 53.0 %) 45.3 MCV (80 - 100 fL) 87 MCH (26 - 34 pg) 29 RDW (11.6 - 14.8 %) 13.6 Neut % (Auto) (50 - 75 %) 75.5 Lymph % (Auto) (25 - 40 %) 13.3 [place] % (Auto) (3 - 14 %) 9.1 Eos % (Auto) (0 - 4 %) 1.8 Baso % (Auto) (0 - 2 %) 0.3 Plt Count, EDTA (150 - 400 K/uL) 334 PUBS MCHC (31 - 37 g/dL) 34 ESR Westergren (0 - 20 mm/hr) 8 03/13 03/13 03/14 1424 1519 0520 Chemistry Plasma Sodium (136 - 145 mmol/L) 134 Plasma Potassium (3.5 - 5.1 mmol/L) 4.4 Plasma Chloride (98 - 107 mmol/L) 99 CO2 (Enzymatic) (21 - 32 mmol/L) 29 BUN (7 - 18 mg/dL) 24 Creatinine (0.6 - 1.3 mg/dL) 0.9 Est GFR ( Amer) (mL/min) >60 Est GFR (Non-Af Amer) (mL/min) >60 Glucose (70 - 110 mg/dL) 127 Plasma Calcium (8.5 - 10.1 mg/dL) 8.1 Hematology WBC (4.5 - 11.5 K/uL) 12.0 RBC (4.50 - 5.90 M/uL) 4.53 Hgb (13.5 - 17.5 gm/dL) 13.2 Hct (41.0 - 53.0 %) 39.5 MCV (80 - 100 fL) 87 MCH (26 - 34 pg) 29 RDW (11.6 - 14.8 %) 13.4 Neut % (Auto) (50 - 75 %) 75.2 Lymph % (Auto) (25 - 40 %) 11.9 [place] % (Auto) (3 - 14 %) 10.4 Eos % (Auto) (0 - 4 %) 2.2 Baso % (Auto) (0 - 2 %) 0.3 Plt Count, EDTA (150 - 400 K/uL) 285 PUBS MCHC (31 - 37 g/dL) 33 Other Body Source CSF Tube Number 4 CSF Volume (CC) 4.0 CSF Appearance CLEAR CSF Color COLORLESS CSF WBC (0 - 5 WBC/mm3) 0.5 CSF RBC (0 - 5 RBC/mm3) 0 CSF Glucose (40 - 75 mg/dL) 76 CSF Total Protein (15 - 45 mg/dL) 205.8 Urines Urine Color YELLOW Urine Appearance CLEAR Urine pH (5.0 - 8.0) 7.0 Ur Specific [place] (1.010 - 1.030) <= 1.005 Urine Protein (NEGATIVE) NEGATIVE Urine Ketones (NEGATIVE) NEGATIVE Urine Blood (NEGATIVE) NEGATIVE Urine Nitrite (NEGATIVE) NEGATIVE Urine Bilirubin (NEGATIVE) NEGATIVE Urine Urobilinogen (0.2 - 1.0 EU/dL) 0.2 Ur Leukocyte Esterase (NEGATIVE) NEGATIVE Urine RBC (0 - 1 rbc/hpf) NONE SEEN Urine WBC (0 - 1 wbc/hpf) RARE Ur Epithelial Cells (0 - 5 EPI/hpf) NONE SEEN Urine Bacteria (NONE SEEN) NONE SEEN Urine Glucose (NEGATIVE) NEGATIVE Urine Comment CULT NOT INDICATED 03/14 520 Chemistry Hemoglobin A1c % (4.5 - 6.2 %) 6.3 Microbiology Date/Time Procedure - Status Source Growth 03/13 1519 CSF Culture - RES CSF 03/13 1519 Gram Stain - RES CSF Assessment and Plan Problem List 1. Intractable headache Plan Headache was intractable over the course of several days. They focused predominantly in the frontal region. No focal neurological deficiencies. All imaging has been unremarkable. Repeat MRI of brain was done today. This showed a normal brain. No remarkable pathology. Number puncture was done yesterday in the ED. This showed elevated protein and glucose. No growth on cultures. ESR and CRP are also unremarkable. Discussed the overall picture with neurology Mathews. Agreed with the MRI today. Maintain appropriate, pain control with the Toradol and Dilaudid 2. Hypertension, uncontrolled Plan Blood pressures moderately controlled. We'll continue with Lopressor 50 mg 3 times a day. In addition, we'll continue the lisinopril 5 mg twice per day. Low-salt diet 3. Hypothyroidism Status Chronic Onset Date Unknown Plan He should continue with a replacement for the hypothyroid. This is followed up with PCP. 4. Hyperlipidemia Status Chronic Onset Date Unknown Plan Cholesterol labs have been elevated. Follow-up with primary care provider 5. Hyperglycemia Status Acute Onset Date Unknown Plan Hyperglycemia. Maintain the insulin sliding scale. 6. Hyponatremia Status Acute Onset Date Unknown Plan Labs normalized 7. Prerenal azotemia Status Acute Onset Date Unknown Plan Maintain Adequate hydration. 8. Leukocytosis Status Acute Onset Date Unknown Plan Both a CRP and sedimentation rate are unremarkable. Follow-up with primary care provider. Current status: Fair, stable Anticipated discharge date: Anticipated discharge in 24 hours with outpatient follow-up with PCP/neurology Anticipated discharge placement: Home Patient care time: Time spent in chart review, patient interview, physical exam, CPOE, and care documentation: 25 minutes Visit to patient today: 2 Complexity of care: High Initial patient evaluation: Emergency department DVT prophylaxis: SCD GI prophylaxis: Protonix 40 mg by mouth daily E&M Codes Rounding: Obsv-Comp/High/[id number]
[2017-03-14 10:04] VITALS: BP 143/74
--- NOTE | 2017-03-14 13:45 | DIAGNOSTIC IMAGING REPORT ---
PROCEDURE: MR BRAIN WITHOUT CONTRAST INDICATION: headache; neurology requesting MRI prior to discharge. TECHNIQUE: Sagittal T1 FLAIR; coronal T2; axial T1 FLAIR, T2-weighted FLAIR, T2 FSE, gradient echo T2, DWI and ADC sequences. COMPARISON: CT head 03/13/2017 and CTA head and neck 03/13/2017. FINDINGS: There is mild cortical atrophy. Normal ventricular system. Mild white matter chronic ischemic changes. There is no acute CVA, hemorrhage, mass or midline shift. Normal vascular flow voids. Normal orbits. Mild ethmoid and bilateral maxillary sinus disease. Mastoids are clear. IMPRESSION: 1. No acute intracranial abnormality 2. Mild atrophy and minor white matter chronic ischemic changes 3. Mild ethmoid and bilateral maxillary sinus disease 4. Results discussed with Dr. Singh.
[2017-03-14 14:32] VITALS: BP 171/79
[2017-03-14 17:40] VITALS: BP 174/89
[2017-03-14 23:02] VITALS: BP 169/82
[2017-03-15 03:15] VITALS: BP 184/118
--- NOTE | 2017-03-15 06:41 | Progress Note ---
Subjective General Note Date: 03/15/2017 Admission Date: 03/13/2017 Hospital Day: Due to observation PCP: [PCP] Eleuterio Guaman Status: Stable Advanced Directive:Full Code Room: 203 81-year-old white male with a significant past medical history of hypertension, lumbar disc disease, hypercholesterolemia, hypothyroidism, who presented to [facility] emergency department on the day of admission secondary to complaints of headache of 5 days duration. [facility] ER evaluation was consistent with intractable headache of unclear etiology. Following consultation with neurology it was elected to admit the patient for observation due to high CSF protein level. Secondary to the above, the patient was admitted by Scott Hernandez M.D. for further evaluation and treatment. Subjective complaints: Patient is not complaining of headaches at the moment. Patient had elevated blood pressure overnight. Patient is aware of his elevated blood pressure in the past. Patient is complaining of less headache. Patient stated's better controlled with the Dilaudid that he's been taking. Patient also reports that he spent taking antinausea medicine. Patient has plans to be seen by his primary care upon discharge. Reports that he is eating the smell. Patient requests Blood pressure management Constitutional Denies: Sweats, Weakness. Physical Exam Vital Signs / I&Os Vital Signs Date Time Temp Pulse Resp B/P Pulse O2 O2 Flow FiO2 Ox Delivery Rate 03/15 0315 184/118 03/15 0227 98.8 76 16 98 Room Air / 2302 98.2 78 18 169/82 98 Room Air / 2042 Room Air / 1740 97.5 60 18 174/89 100 05/ 1432 97.5 58 18 171/79 97 05/ 1004 97.5 56 15 143/74 97 Room Air 05/06 0827 Room Air 05/06 0650 97.9 59 22 166/82 97 Room Air 0.0 I&O / 0800 05/06 1600 / 0000 Intake Total 1269 1240 1909 Output Total 800 0 750 Balance 469 1240 1159 General Appearance Oriented X3, No acute distress HEENT EOMI Lungs Clear to auscultation Neck Supple, No JVD Cardiovascular Regular rate and rhythm, Normal S1 and S2 Neurological Normal gait, Normal speech, Cranial nerves intact Psych/Mental Status Mood normal Assessment and Plan Problem List 1. Hypertension, uncontrolled Plan Reviewed blood pressure overnight. Patient is chronically elevated. Increases lisinopril to 20 mg daily. Starting amlodipine 2.5 mg daily. Patient should be controlled and better managed on blood pressure. Patient will be discharged to home on additional dosage of lisinopril and amlodipine. 2. Intractable headache Plan MRI of brain was unremarkable for acute findings. As a cervicogenic versus vascular component to the headache. Patient is better pain control. Patient will be discharged to home with recommendations for follow-up with neurology and with PCP. 3. Hyperlipidemia Status Chronic Onset Date Unknown Plan Dietary and lifestyle modifications to reduce cholesterol load. 4. Hypothyroidism Status Chronic Onset Date Unknown Plan Continue with replacement of the thyroid. Current status: Observation acute care Anticipated discharge date: Today Anticipated discharge placement: Home Patient care time: Time spent in chart review, patient interview, physical exam, CPOE, and care documentation: 35 minutes Visit to patient today: 2 Complexity of care: moderate Initial patient evaluation: Emergency department DVT prophylaxis: SCD GI: fametadine: none E&M Codes Rounding: Obsv-Comp/Moderate/[id number] Discharge: Observation - All/[id number]
[2017-03-15 07:13] VITALS: BP 172/98
[2017-03-15 10:10] VITALS: BP 174/87
[2017-03-15 13:12] VITALS: BP 180/86
[2017-03-15] MEDS ORDERED: AMLODIPINE BES2.5 MG PO (13:53)
[2017-03-15] MEDS ORDERED: LISINOPRIL10 MG PO (13:54)
[2017-03-15] MEDS ORDERED: HYDROMORPHONE HC2 MG PO (13:55)
[2017-03-15] MEDS ORDERED: ZOFRAN ODT4 MG PO (13:57)
--- NOTE | 2017-03-15 14:01 | Provider's Discharge Care Plan ---
Problem, Goal, Plan Problem List 1. Intractable headache Goals: Diagnostic testing, Improve disease control, Therapeutic intervention Instructions: Follow up as directed, Avoid processed foods, Reduce stress 2. Hypertension, uncontrolled Goals: Improve disease control, Improve function, Improved health/wellness, Prevent disease progress, Screening, Therapeutic intervention Instructions: Follow up as directed, Take meds as directed 3. Hypothyroidism Goals: Improve disease control, Prevent disease progress, Screening Instructions: Follow up as needed, Reduce stress 4. Nausea & vomiting Goals: Therapeutic intervention Instructions: Follow up as needed, Take meds as directed 5. Prerenal azotemia Goals: Diagnostic testing, Screening, Therapeutic intervention Instructions: Take meds as directed
== END 2017-03-15 14:50 | disposition home or self-care (01) ==
LOC: ED SRH 12:05 → TRANS SRH 19:25 → ACUTE2 SRH 20:43
PROVIDERS: ADMIT Internal Medicine
PROC: 009U3ZX Drainage of Spinal Canal, Percutaneous Approach, Diagnostic (ICD-10-PCS; principal; 2017-03-13)
DX: R51 Headache (principal); R11.2 Nausea with vomiting, unspecified; R83.8 Other abnormal findings in cerebrospinal fluid; R39.2 Extrarenal uremia; E78.5 Hyperlipidemia, unspecified; R73.9 Hyperglycemia, unspecified; E87.1 Hypo-osmolality and hyponatremia; E03.9 Hypothyroidism, unspecified
CPT/HCPCS: 29230; 29259; 29264; 85241; 90004; 90047; 90074; 90098; 90100; 90134; 90309; 90616; 91286; 91556; 91585; 92070; 92235; 92530; 92610; 92653; 93140; 95030; 95059; 95150

== ENCOUNTER 2017-05-13 07:22 | Day surgery (SDC) | payer OTHER ==
[~2017-05-13] VITALS: Ht 180.3 cm; Wt 101.9 kg
[~2017-05-13 07:22] MED LIST: AMLODIPINE BES2.5 MG PO; ASPIRIN ADULT L81 MG PO; BENEFIBE2 PO; CIPRO500 MG PO; CYMBALTA20 MG PO; ENDOCET1 TAB PO; FISH OIL1000 M1; FISH OIL1000 M1 PO; FLOMAX0.4 MG PO; HYDROCHLOROTH12.5 MG PO; HYDROMORPHONE HC2 MG PO; LEVOTHYROXINE50 MCG PO; LISINOPRIL10 MG PO; LOPRESSOR25 MG PO; MELOXICAM15 MG PO; NEURONTIN100 MG PO; POLYETHYLENE3350 MG PO; SENOKOT8.6 MG PO; SIMVASTATIN40 MG PO; STOOL SOFTENER100 M1 PO; TRAZODONE HCL50 MG PO; VICODIN EQUIVAL1 TAB PO; VITAMIN D-31000 UNIT PO; ZOFRAN ODT4 MG PO
--- NOTE | 2017-05-13 11:02 | Postoperative Progress Note ---
Postop Progress Note Preoperate Diagnosis: Right CTS Postoperative Diagnosis: Same Surgeon: Reno Zuniga MD Anesthesia: General ETT Findings: CTS right Procedure: The patient was taken to the operating room where he was given a general anesthetic. Tourniquet applied to the right arm and the arm was prepped and draped in the usual sterile fashion. The limb was exsanguinated and the tourniquet inflated to 250 mmHg. And was placed in the lead hand to stabilize it. A zigzag longitudinal incision was made beginning just proximal to the wrist flexion crease and extending distally over the carpal tunnel. Dissection was carried down sharply through the transverse ligament proximally and then a small clamp was inserted in the carpal tunnel and used to protect the median nerve. Complete release of the transverse carpal ligament was performed under direct visualization. Then the tourniquet was deflated. There were a few small bleeders that were coagulated with the Bovie electrocautery and then the incision was closed with interrupted 3-0 nylon suture. It was dressed with Xeroform and sterile cotton gauze wrapped with a Dionte bandage and an Deacon bandage loosely applied. His being awakened and will be taken to recovery room in stable condition. Complications? No Condition: Stable EBL: 2cc Blood Administered: 0 Specimen(s) removed? No Grafts or Implants? No . (See nursing notes for details of grafts/implants)
[2017-05-13] MEDS ORDERED: OXAYDO5 MG PO (11:07)
--- NOTE | 2017-05-13 11:08 | Provider's Discharge Care Plan ---
Problem, Goal, Plan Problem List 1. Carpal tunnel syndrome of right wrist
--- NOTE | 2017-05-13 11:08 | Provider's Discharge Care Plan ---
Problem, Goal, Plan Problem List 1. Carpal tunnel syndrome of right wrist
[2017-05-13 13:25] VITALS: BP 111/68
== END 2017-05-13 12:57 | disposition home or self-care (01) ==
LOC: OR SRH 07:22 → SCU SRH 07:23 → OR SRH 09:30
PROVIDERS: Orthopaedic Surgery
PROC: 01N50ZZ Release Median Nerve, Open Approach (ICD-10-PCS; principal; 2017-05-13 09:30)
DX: G56.01 Carpal tunnel syndrome, right upper limb (principal); I10 Essential (primary) hypertension
CPT/HCPCS: 29229; 29240; 50004; 60001; 70002; 80011; 80212; 80575; 83414; 83774; 84044